=== PATIENT | female | born 1945 | race Caucasian/White ===

== ENCOUNTER 2021-05-31 13:08 | Inpatient (IN) | payer MEDICARE, BC ==
[2021-05-31] MEDS ORDERED: solu-MEDROL 125 MG, Sterile H2O 10 ml 2 ML IV ONE ×2 (13:34)
[2021-05-31 13:53] LABS: Hematocrit 40.7 % (35-47); Hemoglobin 13.4 gm/dl (12.0-16.0); Mean Cell Volume 91.3 fl (78-100); Mean Corpuscular Hgb Concent. 32.9 g/dl (32-36); Mean Platelet Volume 11.1 fl (7.5-11.0); Platelet Count 198 K/mm3 (150-450); Red Blood Count 4.46 M/mm3 (4.1-5.4); Red Cell Distribution Width 14.1 % (11.5-14.0); White Blood Count 4.8 K/mm3 (4.0-10.5)
[2021-05-31] MEDS: Sodium Chloride 0.9% 1000 ML 1,000 ML IV SCH (14:01)
--- NOTE | 2021-05-31 14:01 | XRAY ---
Indication: Short of breath. Suspect Covid 19. Comparison: None Portable chest demonstrates subtle diffuse bilateral hazy interstitial alveolar opacities without consolidation/large effusion. Heart not enlarged. Bony thorax intact with mild osteopenia, degenerative changes, and old left humerus fracture.
[2021-05-31] MEDS ORDERED: solu-MEDROL ONE (14:09)
[2021-05-31 14:29] LABS: INR 1.17 (0.8-3.0); PROTIME 13.8 SECONDS (9.4-12.5)
--- NOTE | 2021-05-31 14:33 | ERPHSYRPT ---
- History of Present Illness Time Seen by Provider: 05/31/21 13:25 Source: patient Exam Limitations: no limitations Patient Subjective Stated Complaint: Near syncope Triage Nursing Assessment: Patient brought down to ED via w/c and transferred self to bed. Patient A+O x 3. Patient's skin flushed, warm and dry. Patient complains of near syncopal episode prior to coming a chest x ray while at [facility] [place] [facility]. Patient complains of cough, SOB, Headache, bodyache, N/V diarrhea and fatige since 05/23/2021. Patient took home COVID test on 05/24/2021 and it was positive. Intial O2 88% on room air. Physician History: Patient is a 75-year-old white female who presents to the ER by wheelchair from the [facility] where she was subject to near syncopal episode while trying to get a chest x-ray. She has been sick for 7 days. She has cough which is basically nonproductive pleuritic chest pain shortness of breath headache loss of taste and smell she is also had nausea vomiting and diarrhea. She did have a home Covid test which was positive and it was noted her O2 sat on room air at the [facility] was 88%. Timing/Duration: day(s), week(s) (1) Cough Quality/Degree: dry cough Possible Cause: occasional episodes Modifying Factors: Improves With: coughing, oxygen Associated Symptoms: fever, chills, chest pain/soreness, cough, headache, lightheadedness, nasal congestion, shortness of breath, wheezing Allergies/Adverse Reactions: codeine Allergy (Verified 05/31/21 13:21) Hx Influenza Vaccination/Date Given: No Hx Pneumococcal Vaccination/Date Given: No Immunizations Up to Date: Yes Travel Risk - International Travel Have you traveled outside of the country in past 3 weeks: No - Coronavirus Screening Are you exhibiting any of the following symptoms?: No Symptoms: Cough: New Onset, Shortness of Breath, Vomiting/Diarrhea, Headaches/Body Aches/Fatigue - Vaccine Status Have you recieved a Covid-19 vaccination: No - Review of Systems Constitutional: Fever, Chills Eyes: No Symptoms Ears, Nose, & Throat: Nose Congestion, Sinus Drainage, Throat Pain, Throat Swelling, Hoarse, Painful Swallowing Respiratory: Cough, Dyspnea, Wheezing Cardiac: Chest Pain, Syncope (Near syncope in [facility]), No Edema Abdominal/Gastrointestinal: Abdominal Pain, Nausea, Vomiting, Diarrhea, Appetite Changes Genitourinary Symptoms: No Dysuria Musculoskeletal: Arthralgias, Myalgias, No Back Pain, No Neck Pain Skin: No Rash Neurological: Headache, No Dizziness, No Focal Weakness, No Sensory Changes Psychological: No Symptoms Endocrine: No Symptoms All Other Systems: Reviewed and Negative - Past Medical History Pertinent Past Medical History: No Neurological History: No Pertinent History ENT History: No Pertinent History Cardiac History: Hypertension Respiratory History: No Pertinent History Endocrine Medical History: No Pertinent History Musculoskeletal History: No Pertinent History GI Medical History: No Pertinent History History: No Pertinent History Psycho-Social History: No Pertinent History Female Reproductive Disorders: No Pertinent History - Past Surgical History Past Surgical History: Yes Neuro Surgical History: No Pertinent History Cardiac: Cardiac Catheterization, Cardiac Stent Respiratory: No Pertinent History Gastrointestinal: Cholecystectomy Genitourinary: No Pertinent History Musculoskeletal: No Pertinent History Female Surgical History: No Pertinent History - Social History Smoking Status: Never smoker Exposure to second hand smoke: No Drug Use: none Patient Lives Alone: No - Female History Hx Now: No - Nursing Vital Signs Nursing Vital Signs: Initial Vital Signs Pulse Rate 76 05/31/21 13:09 Respiratory Rate 28 H 05/31/21 13:09 Blood Pressure 148/72 05/31/21 13:09 O2 Sat by Pulse Oximetry 88 L 05/31/21 13:09 Pain Scale Pain Intensity 0 - Physical Exam General Appearance: moderate distress, alert Eye Exam: PERRL/EOMI, eyes nml inspection Ears, Nose, Throat Exam: TMs normal, pharynx normal, dry mucous membranes Neck Exam: normal inspection, non-tender, supple, full range of motion Respiratory Exam: respiratory distress, diminished breath sounds, crackles/rales, wheezing Cardiovascular Exam: regular rate/rhythm, normal heart sounds Gastrointestinal/Abdomen Exam: tenderness, No guarding, No rebound Back Exam: normal inspection, No CVA tenderness, No vertebral tenderness Extremity Exam: normal inspection, normal range of motion Neurologic Exam: alert, oriented x 3, cooperative, normal mood/affect, sensation nml, No motor deficits Skin Exam: normal color, warm, dry, No rash Lymphatic Exam: No adenopathy SpO2 Interpretation: hypoxic, O2 applied SpO2: 88 O2 Delivery: Nasal Cannula - Course Nursing assessment & vital signs reviewed: Yes EKG Interpreted by Me: RATE (76), Sinus Rhythm, NORMAL AXIS, NORMAL INTERVALS, NORMAL QRS, NORMAL ST-T - Radiology Exams Chest X-ray Interpretation: Other (Chest x-ray shows subtle diffuse bilateral hazy interstitial alveolar patches without consolidation or large effusion heart not enlarged bony thorax intact with mild S osteopenia degenerative changes and old left humerus fracture) Ordered Tests: Active Orders 24 hr Category Date Time Status EKG-ER Only STAT Care 05/31/21 13:34 Active IV Insertion STAT Care 05/31/21 13:34 Active Oxygen-ED Only Nasal Cannula 5 lpm Care 05/31/21 13:34 Active CHEST 1 VIEW (PORTABLE) Stat Exams 05/31/21 13:35 Completed BLOOD CULTURE Stat Lab 05/31/21 14:00 Received CBC W DIFF Stat Lab 05/31/21 13:40 Completed CMP Stat Lab 05/31/21 15:19 Ordered D-DIMER QUANTITATIVE Stat Lab 05/31/21 14:05 Completed Lactic Acid Stat Lab 05/31/21 13:55 Completed MAGNESIUM Stat Lab 05/31/21 13:40 Completed Manual Differential NC Stat Lab 05/31/21 13:40 Completed NT PRO BNP Stat Lab 05/31/21 13:40 Completed PROTIME WITH INR Stat Lab 05/31/21 14:05 Completed TROPONIN Q3H Lab 05/31/21 13:40 Completed TROPONIN Q3H Lab 05/31/21 16:45 Ordered TROPONIN Q3H Lab 05/31/21 19:45 Ordered TROPONIN Q3H Lab 05/31/21 22:45 Ordered TROPONIN Q3H Lab 06/01/21 01:45 Ordered UA W/RFX UR CULTURE Stat Lab 05/31/21 13:35 Ordered Medication Summary Generic Name Dose Route Start Last Admin Trade Name Freq PRN Reason Stop Dose Admin Sodium Chloride 1,000 mls @ 50 mls/hr 05/31/21 13:45 05/31/21 14:01 Sodium Chloride 0.9% 1000 Ml IV 06/30/21 13:44 50 mls/hr .Q20H JEYSON Administration Discontinued Medications Generic Name Dose Route Start Last Admin Trade Name Freq PRN Reason Stop Dose Admin Methylprednisolone Sodium 0 mg 05/31/21 13:34 05/31/21 14:09 Succinate 125 mg/ Sterile IV 05/31/21 13:35 125 mg Water 2 ml STAT ONE Administration Methylprednisolone Sodium Succinate Confirm 05/31/21 14:09 Methylprednis Sod Succ 125 Mg/2 Ml Vial Administered 05/31/21 14:10 Dose 125 mg .ROUTE .STK-MED ONE Lab/Rad Data: Laboratory Result Diagrams 05/31/21 13:40 Laboratory Results 05/31/21 05/31/21 05/31/21 Range/Units 14:05 13:58 13:55 WBC (4.0-10.5) K/mm3 RBC (4.1-5.4) M/mm3 Hgb (12.0-16.0) gm/dl Hct (35-47) % MCV (78-100) fl MCH (26-32) pg MCHC (32-36) g/dl RDW (11.5-14.0) % Plt Count (150-450) K/mm3 MPV (7.5-11.0) fl Segmented Neutrophils (36.0-66.0) % Band Neutrophils (0.0-2.0) % Lymphocytes (Manual) (24-44) % Monocytes (Manual) (0.0-12.0) % Atypical Lymphocytes % Platelet Estimate (NORMAL) RBC Morphology Anisocytosis PT 13.8 H (9.4-12.5) SECONDS INR 1.17 (0.8-3.0) D-Dimer 856 H* (215-500) ng/mL Lactic Acid 1.2 (0.4-2.0) Magnesium (1.6-2.3) mg/dL Troponin I (0.000-0.034) ng/mL NT-Pro-B Natriuret Pep (0-900) pg/mL Influenza Type A Ag NEGATIVE (NEGATIVE) Influenza Type B Ag NEGATIVE (NEGATIVE) RSV (PCR) NEGATIVE (Negative) SARS-CoV-2 (PCR) POSITIVE A (NEGATIVE) 05/31/21 05/31/21 05/31/21 Range/Units 13:40 13:40 13:40 WBC 4.8 (4.0-10.5) K/mm3 RBC 4.46 (4.1-5.4) M/mm3 Hgb 13.4 (12.0-16.0) gm/dl Hct 40.7 (35-47) % MCV 91.3 (78-100) fl MCH 30.0 (26-32) pg MCHC 32.9 (32-36) g/dl RDW 14.1 H (11.5-14.0) % Plt Count 198 (150-450) K/mm3 MPV 11.1 H (7.5-11.0) fl Segmented Neutrophils 42 (36.0-66.0) % Band Neutrophils 1 (0.0-2.0) % Lymphocytes (Manual) 42 (24-44) % Monocytes (Manual) 11 (0.0-12.0) % Atypical Lymphocytes 4 % Platelet Estimate NORMAL (NORMAL) RBC Morphology ABNORMAL Anisocytosis 1+ PT (9.4-12.5) SECONDS INR (0.8-3.0) D-Dimer (215-500) ng/mL Lactic Acid (0.4-2.0) Magnesium 2.0 (1.6-2.3) mg/dL Troponin I 0.049 H* (0.000-0.034) ng/mL NT-Pro-B Natriuret Pep 678 (0-900) pg/mL Influenza Type A Ag (NEGATIVE) Influenza Type B Ag (NEGATIVE) RSV (PCR) (Negative) SARS-CoV-2 (PCR) (NEGATIVE) - Progress Progress: unchanged Air Movement: fair Blood Culture(s) Obtained: Yes Antibiotics given: No Discussed with Dr.: Other (Dr Schultz) Will see patient in: hospital (full admit) - Departure Departure Disposition: In-patient Admission Clinical Impression: COVID-19 Condition: Fair Critical Care Time: No Referrals: JAEL LEHMAN [Primary Care Provider] - Follow up/PCP as directed
[2021-05-31 14:54] LABS: INFLUENZA A NEGATIVE (NEGATIVE); INFLUENZA B NEGATIVE (NEGATIVE); RESPIRATORY SYNCTIAL VIRUS NEGATIVE (Negative)
[2021-05-31 15:13] LABS: SARS-CoV-2 Xpert Express POSITIVE (NEGATIVE)
[2021-05-31 15:34] LABS: ANISOCYTOSIS 1+; ATYPICAL LYMPHS 4 %; BAND 1 % (0.0-2.0); Lymphocytes 42 % (24-44); Monocyte 11 % (0.0-12.0); Neutrophils 42 % (36.0-66.0); Platelet Estimate NORMAL (NORMAL); Total Cells Counted 100
[2021-05-31 15:41] LABS: ALBUMIN 3.8 g/dL (3.5-5.0); ALKALINE PHOSPHATASE 75 U/L (38-126); ANION GAP 15.3 MEQ/L (5-15); BLOOD UREA NITROGEN 15 mg/dL (7-17); CHLORIDE 101 mmol/L (98-107); Calcium 8.1 mg/dL (8.4-10.2); Carbon Dioxide 24 mmol/L (22-30); Creatinine 1 0.86 mg/dL (0.52-1.04); EST GLOMERULAR FILTRATION RATE > 60.0 ML/MIN; Glucose 111 mg/dL (74-106); Potassium 3.7 mmol/L (3.5-5.1); SGOT/AST 41 U/L (14-36); SGPT/ALT 23 U/L (0-35); SODIUM 137 mmol/L (137-145); Total Protein 6.5 g/dL (6.3-8.2)
[2021-05-31] MEDS ORDERED: Zithromax 500 MG/ 250 ML NaCl Premix 500 MG/250 ML IVPB IV SCH (17:00)
[2021-05-31 17:56] LABS: Appearance SLIGHTLY CLOUDY (CLEAR); Bilirubin NEGATIVE (NEGATIVE); Blood SMALL Ery/ul (0-5); Epithelial Cells RARE /HPF (FEW); Glucose NEGATIVE (NEGATIVE); Ketones SMALL (NEGATIVE); Leukocyte Esterase TRACE (NEGATIVE); Mucus SLIGHT /HPF (NEGATIVE); Nitrite NEGATIVE (NEGATIVE); Protein,Urine Dip 100 (Negative); Specific Gravity 1.016 (1.005-1.025); Urobilinogen NEGATIVE mg/dL (0-1)
[2021-05-31] MEDS: ENOXAPARIN SODIUM SQ SCH (18:50)
[2021-05-31] MEDS ORDERED: Zofran 4 MG/2 ML VIAL IV PRN (20:51)
[2021-05-31] MEDS ORDERED: REMDESIVIR 200 MG in Sodium Chloride 0.9% 250 ML 250 ML IV ONE (20:52)
[2021-05-31] MEDS ORDERED: Sodium Chloride 0.9% 250 ML 250 ML IV ONE (20:52)
[2021-05-31] MEDS ORDERED: REMDESIVIR IV ONE (20:52)
[2021-05-31] MEDS ORDERED: Ativan 2 MG/1 ML VIAL IV PRN (20:56)
[2021-05-31] MEDS: OLUMIANT PO SCH (21:22)
[2021-05-31] MEDS: Pepcid 20 MG VIAL IV SCH (21:23)
[2021-05-31] MEDS ORDERED: NORVASC 5 MG PO ONE (22:00)
[2021-05-31] MEDS ORDERED: HYDROCODONE-CHLORPHEN ER SUSP PO PRN (22:00)
[2021-06-01] MEDS: Sodium Chloride 0.9% 1000 ML 1,000 ML IV SCH (01:44)
[2021-06-01 02:34] LABS: Hematocrit 37.3 % (35-47); Hemoglobin 12.3 gm/dl (12.0-16.0); Mean Cell Volume 90.8 fl (78-100); Mean Corpuscular Hemoglobin 29.9 pg (26-32); Mean Platelet Volume 10.7 fl (7.5-11.0); Platelet Count 188 K/mm3 (150-450); Red Blood Count 4.11 M/mm3 (4.1-5.4); Red Cell Distribution Width 13.9 % (11.5-14.0)
[2021-06-01 02:59] LABS: INR 1.14 (0.8-3.0); PROTIME 13.5 SECONDS (9.4-12.5)
[2021-06-01 03:22] LABS: ALBUMIN 3.4 g/dL (3.5-5.0); ALKALINE PHOSPHATASE 70 U/L (38-126); ANION GAP 11.5 MEQ/L (5-15); BLOOD UREA NITROGEN 14 mg/dL (7-17); CHLORIDE 103 mmol/L (98-107); Calcium 7.7 mg/dL (8.4-10.2); Carbon Dioxide 25 mmol/L (22-30); Creatinine 1 0.72 mg/dL (0.52-1.04); EST GLOMERULAR FILTRATION RATE > 60.0 ML/MIN; Glucose 174 mg/dL (74-106); NT PRO BNP 505 pg/mL (0-900); Potassium 3.7 mmol/L (3.5-5.1); SGOT/AST 37 U/L (14-36); SGPT/ALT 22 U/L (0-35); SODIUM 136 mmol/L (137-145); Total Protein 5.9 g/dL (6.3-8.2)
[2021-06-01 03:44] LABS: White Blood Count 1.8 K/mm3 (4.0-10.5)
[2021-06-01 04:51] LABS: ANISOCYTOSIS 1+; Lymphocytes 61 % (24-44); Monocyte 1 % (0.0-12.0); Neutrophils 38 % (36.0-66.0); Platelet Estimate NORMAL (NORMAL); Total Cells Counted 100
[2021-06-01] MEDS ORDERED: Ativan 1 MG PO PRN (07:12)
[2021-06-01] MEDS ORDERED: Sodium Chloride 0.9% 1000 ML 1,000 ML IV SCH (07:15)
[2021-06-01] MEDS ORDERED: Nitrostat 0.4 MG Tablet SL PRN (07:28)
--- NOTE | 2021-06-01 07:56 | HP ---
CHIEF COMPLAINT: Near syncope, weakness, diarrhea and cough. HISTORY OF PRESENT ILLNESS: The patient was in the outpatient clinic sent for a chest x-ray when she was being transferred and said she had to lay down that she was passing out. Chest x-ray showed bilateral early COVID. She was short of breath, coughing for the last week, headache, no appetite, body ache, nausea, vomiting and diarrhea. She has had diarrhea for ten years although it is much worse. She is not taking Metformin. Her gallbladder was removed and that is probably the cause of her diarrhea, I believe, and she is on medicine for that. Initially, she was 88% on room air in the emergency room however started dropping soon after that. She is a nonsmoker. Interesting she has lost her sense of taste and smell. Home COVID test was positive three days ago. She does not know that she has had any high fever. She is cold most of the time. TRAVEL RISK: No international travel. CORONAVIRUS SCREENING: Home COVID test was positive three days ago. Vaccines: None of any type. MEDICATIONS: Amlodipine, Prevalite, nitroglycerin PRN, Bentyl, omeprazole, carvedilol, Imdur, Plavix, aspirin. ALLERGIES: CODEINE. PAST MEDICAL HISTORY: Hypertension. Hyperlipidemia. PAST SURGICAL HISTORY: Stenting. Cholecystectomy. REVIEW OF SYSTEMS: CONSTITUTIONAL: Chills. HEENT: Decreased taste. Decreased smell. Runny nose, sore throat, hoarse. CARDIAC: The patient has had two stents placed in at one time. She has no chest pain and no angina since then. No heart failure. ABDOMEN: She has had pain. She had diarrhea since her gallbladder was taken out, worse since she had COVID, some vomiting, no appetite. : No problems urinating. MUSCULOSKELETAL: Weak, ache all over. Occasionally she has jerky restless legs at night. SOCIAL HISTORY: Nonsmoker. Lives with her in [place], retired, adult daughter and son. PHYSICAL EXAMINATION: The patient is laying down. She is alert, orientated, very pleasant and in no distress. VITAL SIGNS: Temperature 98F, pulse 76, respirations 28. O2 saturation 88% on room air. HEENT: Pupils equal and reactive to light. NECK: Supple without adenopathy. CHEST: Few crackles at the bases. CVS: Regular rate. No murmurs or gallops. ABDOMEN: Slightly tender in the epigastric and midline area. EXTREMITIES: Good pulses. No edema. No cyanosis. LAB DATA AND TESTS: EKG appears to be normal. She has minimal elevation of troponins. Lab work: D-dimer is 857. Pro-time 13.8. INR 1.17. White count 4.8, hemoglobin 13.4, hematocrit 40.7. Troponins minimally elevated 0.049. BNP 678 which is normal. Blood cultures were obtained. Antibiotics not given. IMPRESSION: She was admitted to the COVID Unit for: 1) Treatment of active COVID. 2) Dehydration. 3) Gastroenteritis. 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 5) Coronary artery disease, stable. PROGNOSIS: Good.
[2021-06-01] MEDS: BENTYL 20 MG PO SCH ×2 (08:57→17:13)
[2021-06-01] MEDS: NORVASC 5 MG PO SCH ×2 (09:04→18:39)
[2021-06-01] MEDS: OLUMIANT PO SCH (09:04)
[2021-06-01] MEDS: Coreg 3.125 MG PO SCH (09:04)
[2021-06-01] MEDS: PLAVIX 75 MG Tablet PO SCH (09:04)
[2021-06-01] MEDS: Imdur 30 MG PO SCH (09:04)
[2021-06-01] MEDS: ENOXAPARIN SODIUM SQ SCH (09:05)
[2021-06-01] MEDS: QUESTRAN Light 4 GM Packet PO SCH ×3 (09:05→17:14)
[2021-06-01] MEDS: Protonix 40MG Tablet PO SCH (09:05)
[2021-06-01] MEDS: Pepcid 20 MG VIAL IV SCH ×2 (09:05→21:07)
[2021-06-01] MEDS ORDERED: NON-FORMULARY ITEM (Omeprazole [Omeprazole] 40 MG Capsule.Dr) PO SCH (10:00)
--- NOTE | 2021-06-01 10:03 | XRAY ---
Indication: Suspect Covid 19. Comparison: One day earlier. Portable chest unchanged again demonstrating subtle diffuse bilateral hazy interstitial alveolar opacities without consolidation/large effusion. Heart not enlarged again with stent graft emanating from aortic arch. No new cardiopulmonary abnormalities.
[2021-06-01] MEDS: TYLENOL EXTRA STRENGTH 500 MG PO PRN ×2 (10:59→21:19)
[2021-06-01] MEDS: Prozac 20 MG PO SCH ×2 (11:00→11:06)
[2021-06-01] MEDS ORDERED: BENADRYL 25 MG CAPSULE PO PRN (17:32)
[2021-06-01] MEDS ORDERED: REMDESIVIR 100 MG in Sodium Chloride 0.9% 100 ML BAG 100 ML IV SCH (22:00)
[2021-06-02 05:24] LABS: Hematocrit 35.8 % (35-47); Hemoglobin 11.6 gm/dl (12.0-16.0); Mean Cell Volume 91.8 fl (78-100); Mean Corpuscular Hemoglobin 29.7 pg (26-32); Mean Corpuscular Hgb Concent. 32.4 g/dl (32-36); Mean Platelet Volume 10.5 fl (7.5-11.0); Platelet Count 236 K/mm3 (150-450); Red Cell Distribution Width 14.2 % (11.5-14.0); White Blood Count 6.8 K/mm3 (4.0-10.5)
[2021-06-02 05:48] LABS: ALBUMIN 3.3 g/dL (3.5-5.0); ALKALINE PHOSPHATASE 57 U/L (38-126); ANION GAP 9.3 MEQ/L (5-15); BLOOD UREA NITROGEN 20 mg/dL (7-17); CHLORIDE 106 mmol/L (98-107); Calcium 7.9 mg/dL (8.4-10.2); Carbon Dioxide 27 mmol/L (22-30); Creatinine 1 0.68 mg/dL (0.52-1.04); EST GLOMERULAR FILTRATION RATE > 60.0 ML/MIN; Glucose 117 mg/dL (74-106); Potassium 3.3 mmol/L (3.5-5.1); SGOT/AST 35 U/L (14-36); SGPT/ALT 21 U/L (0-35); SODIUM 139 mmol/L (137-145); Total Protein 6.1 g/dL (6.3-8.2)
[2021-06-02] MEDS: BENTYL 20 MG PO SCH (07:23)
--- NOTE | 2021-06-02 08:35 | XRAY ---
Indication: Follow-up Covid 19. Comparison: One day earlier. Portable chest continues to remain unchanged again demonstrating subtle diffuse bilateral hazy interstitial lobular opacities. Heart not enlarged again with stent graft emanating from aortic arch. No new cardiopulmonary abnormalities.
[2021-06-02] MEDS: OLUMIANT PO SCH (09:03)
[2021-06-02] MEDS: NORVASC 5 MG PO SCH (09:04)
[2021-06-02] MEDS: Pepcid 20 MG VIAL IV SCH (09:04)
[2021-06-02] MEDS: Prozac 20 MG PO SCH (09:04)
[2021-06-02] MEDS: PLAVIX 75 MG Tablet PO SCH (09:04)
[2021-06-02] MEDS: Protonix 40MG Tablet PO SCH (09:04)
[2021-06-02] MEDS: Coreg 3.125 MG PO SCH (09:04)
[2021-06-02] MEDS: ENOXAPARIN SODIUM SQ SCH (09:04)
[2021-06-02] MEDS: Imdur 30 MG PO SCH (09:04)
[2021-06-02] MEDS: QUESTRAN Light 4 GM Packet PO SCH (09:05)
[2021-06-02 10:48] VITALS: BP 151/67; PULSE 109; O2SAT 92
--- NOTE | 2021-06-02 10:52 | DS ---
ADMISSION DIAGNOSIS: COVID pneumonia. DISCHARGE DIAGNOSIS: COVID PNEUMONIA. HISTORY: The patient became very nauseated, shortness of breath, had trouble walking. She came in and required high flow at 8 liters to get her O2 up. For a little while she did not feel bad. Her appetite was good. White count was 8.5. D-dimer was 1300. Sodium 139. Other health problems of bilateral COVID, hypertension, hyperlipidemia, hypothyroidism, diabetes mellitus. HOSPITAL COURSE: The patient was gradually weaned off the oxygen. She was given Remdesivir, Decadron. She was anticoagulated partially and also given antibodies. She on a daily basis improved consistently and rapidly. Blood sugar was well controlled. 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 [place] [address] and was placed on Lovenox and Eliquis. She was started on Prozac because of recent studies showing that it may help improvement. Chest x-ray on 05/27/2021 showed typical diffuse, hazy ground glass findings of COVID on the right. The highest D-dimer was 08704. The highest blood sugar was about 192. White count did go up to 12.3. Diastolic 2/6 systolic murmur I could hear on 05/31/2021 and not so much on 06/01/2021. She is much improved and will be discharged home on her home medications. Follow up with her oncologist and other doctors. She is to isolate for another ten days. PROGNOSIS: Good.
== END 2021-06-02 12:00 | disposition home or self-care (01) | DRG 177 ==
LOC: ED 13:08 → MED SURG 16:10
PROVIDERS: ADMIT Family Medicine; ATTEND Family Medicine
DX: U07.1 COVID-19 (principal); J12.82 Pneumonia due to coronavirus disease 2019; C34.90 Malignant neoplasm of unspecified part of unspecified bronchus or lung; E86.0 Dehydration; K52.9 Noninfective gastroenteritis and colitis, unspecified; R55 Syncope and collapse; I10 Essential (primary) hypertension; E78.5 Hyperlipidemia, unspecified; E11.9 Type 2 diabetes mellitus without complications; E03.9 Hypothyroidism, unspecified; I25.10 Atherosclerotic heart disease of native coronary artery without angina pectoris; Z79.01 Long term (current) use of anticoagulants; Z20.828 Contact with and (suspected) exposure to other viral communicable diseases
CPT/HCPCS: 0241U; 36000; 36415; 71045; 80053; 81001; 82947; 83605; 83735; 83880; 84484; 85025; 85027; 85060; 85379; 85610; 86140; 87040; 87086; 93005; 94762; 96374; 99285; J1650; J2060; J2930; A9270-GY

== ENCOUNTER 2023-07-24 10:08 | Observation (INO) | payer MEDICARE, BC ==
--- NOTE | 2023-07-24 10:26 | ERPHSYRPT ---
- History of Present Illness Time Seen by Provider: 07/24/23 10:25 Source: patient Exam Limitations: no limitations Patient Subjective Stated Complaint: Pt states "I have been fighting something for quite awhile now and now I am having a really hard time breathing and I am still coughing." Triage Nursing Assessment: Pt presented alert and oriented X 3, skin pwd. PT ambulates with an upright steady gait, able to speak in clear full sentences. PT slightly tachypniec. Physician History: 77-year-old female presents to emergency department for evaluation of progressive shortness of breath and coughing. Patient states her symptoms started approximately 2 days ago. Symptoms are worse with exertion improved with rest. No trauma no fever. No nausea vomiting or diaphoresis. Patient denies chest pain. Symptoms are moderate in intensity. Patient denies a history of the same. She voices no other complaints or concerns at this time. Portions of this note were created with voice recognition technology. There may be grammatical, spelling, punctuation or sound alike errors Timing/Duration: week(s) (2 weeks) Severity: moderate Modifying Factors: Improves With: nothing Associated Symptoms: denies symptoms Allergies/Adverse Reactions: codeine Allergy (Severe, Verified 05/31/21 16:41) Nausea and Vomiting Home Medications: Amlodipine Besylate 5 mg PO BID 05/31/21 [History] Aspirin EC 81 mg [Ecotrin 81 mg] 81 mg PO DAILY 05/31/21 [History] Carvedilol 3.125 mg [Coreg 3.125 MG] 0.5 tab PO DAILY 05/31/21 [History] Clopidogrel Bisulfate [PLAVIX 75 MG Tablet] 75 mg PO DAILY 05/31/21 [History] Isosorbide Mononitrate 30 mg [Imdur 30 MG] 30 mg PO DAILY 05/31/21 [History] Nitroglycerin 0.4 mg Tablet [Nitrostat 0.4 MG Tablet] 0.4 mg SL UD PRN 05/31/21 [History] Omeprazole 40 mg PO DAILY 05/31/21 [History] Cefdinir 300 mg PO BID 07/24/23 [History] Hx Tetanus, Diphtheria Vaccination/Date Given: No Hx Influenza Vaccination/Date Given: No Hx Pneumococcal Vaccination/Date Given: No Immunizations Up to Date: No Travel Risk - International Travel Have you traveled outside of the country in past 3 weeks: No - Coronavirus Screening Are you exhibiting any of the following symptoms?: Yes Symptoms: Cough: New Onset, Shortness of Breath, Vomiting/Diarrhea - Vaccine Status Have you recieved a Covid-19 vaccination: No - Review of Systems Constitutional: No Symptoms, No Fever, No Chills Eyes: No Symptoms Ears, Nose, & Throat: No Symptoms Respiratory: No Symptoms, No Cough, No Dyspnea Cardiac: No Symptoms, No Chest Pain, No Edema, No Syncope Abdominal/Gastrointestinal: No Symptoms, No Abdominal Pain, No Nausea, No Vomiting, No Diarrhea Genitourinary Symptoms: No Symptoms, No Dysuria Musculoskeletal: No Symptoms, No Back Pain, No Neck Pain Skin: No Symptoms, No Rash Neurological: No Symptoms, No Dizziness, No Focal Weakness, No Sensory Changes Psychological: No Symptoms Endocrine: No Symptoms Hematologic/Lymphatic: No Symptoms Immunological/Allergic: No Symptoms All Other Systems: Reviewed and Negative - Past Medical History Pertinent Past Medical History: Yes Neurological History: No Pertinent History ENT History: No Pertinent History Cardiac History: Hypertension Respiratory History: Pneumonia Endocrine Medical History: No Pertinent History Musculoskeletal History: Arthritis GI Medical History: GERD History: No Pertinent History Psycho-Social History: No Pertinent History Female Reproductive Disorders: No Pertinent History Other Medical History: "Blood clots near my heart" - Past Surgical History Past Surgical History: Yes Neuro Surgical History: No Pertinent History Cardiac: Cardiac Catheterization, Cardiac Stent Respiratory: No Pertinent History Gastrointestinal: Cholecystectomy Genitourinary: No Pertinent History Musculoskeletal: No Pertinent History Female Surgical History: No Pertinent History - Social History Smoking Status: Former smoker Exposure to second hand smoke: No Drug Use: none Patient Lives Alone: No - Nursing Vital Signs Nursing Vital Signs: Initial Vital Signs Temperature 97.6 F 07/24/23 10:18 Pulse Rate 79 07/24/23 10:18 Respiratory Rate 22 07/24/23 10:18 Blood Pressure 150/65 07/24/23 10:18 O2 Sat by Pulse Oximetry 91 L 07/24/23 10:18 Pain Scale Pain Intensity 0 - Physical Exam General Appearance: no apparent distress, alert Eye Exam: PERRL/EOMI, eyes nml inspection Ears, Nose, Throat Exam: normal ENT inspection, TMs normal, pharynx normal, moist mucous membranes Neck Exam: normal inspection, non-tender, supple, full range of motion Respiratory Exam: normal breath sounds, diminished breath sounds, crackles/rales, wheezing, No respiratory distress Cardiovascular Exam: regular rate/rhythm, normal heart sounds, normal peripheral pulses Gastrointestinal/Abdomen Exam: soft, normal bowel sounds, No tenderness, No mass Back Exam: normal inspection, normal range of motion, No CVA tenderness, No vertebral tenderness Extremity Exam: normal inspection, normal range of motion, pelvis stable Neurologic Exam: alert, oriented x 3, cooperative, normal mood/affect, sensation nml, No motor deficits Skin Exam: normal color, warm, dry, No rash Lymphatic Exam: No adenopathy SpO2 Interpretation: normal SpO2: 95 O2 Delivery: Room Air - Course Nursing assessment & vital signs reviewed: Yes EKG Interpreted by Me: RATE (73), Sinus Rhythm, NORMAL AXIS, NORMAL INTERVALS - CT Exams Chest CT Interpretation: Tele-radiologist Report (No PE. No acute findings.) Ordered Tests: Active Orders 24 hr Category Date Time Status Central Office Equipment Engineer STAT Care 07/24/23 10:34 Active EKG-ER Only STAT Care 07/24/23 10:33 Active IV Insertion STAT Care 07/24/23 10:33 Active Pulse Oximetry (ED) STAT Care 07/24/23 10:33 Active Telemetry q4h Care 07/24/23 11:36 Active CHEST WITH CONTRAST [CT] Stat Exams 07/24/23 11:35 Completed BLOOD CULTURE Stat Lab 07/24/23 10:53 Received CBC Q48H Lab 07/25/23 06:00 Ordered CBC Q48H Lab 07/27/23 06:00 Ordered CBC Q48H Lab 07/29/23 06:00 Ordered CBC Q48H Lab 07/31/23 06:00 Ordered CBC Q48H Lab 08/02/23 06:00 Ordered CBC Q48H Lab 08/04/23 06:00 Ordered CBC Q48H Lab 08/06/23 06:00 Ordered CBC Stat Lab 07/24/23 16:00 Completed CBC W DIFF Stat Lab 07/24/23 10:32 Completed CMP Stat Lab 07/24/23 10:32 Completed CULTURE,URINE Stat Lab 07/24/23 Received D-DIMER QUANTITATIVE Stat Lab 07/24/23 10:32 Completed NT PRO BNPII Stat Lab 07/24/23 10:32 Completed PROTIME WITH INR Stat Lab 07/24/23 16:00 Completed PTT Q4H Lab 07/24/23 18:48 Completed PTT Q4H Lab 07/24/23 23:01 Received PTT Q4H Lab 07/25/23 03:45 Ordered PTT Q4H Lab 07/25/23 07:45 Ordered PTT Q4H Lab 07/25/23 11:45 Ordered PTT Q4H Lab 07/25/23 15:45 Ordered PTT Q4H Lab 07/25/23 19:45 Ordered PTT Q4H Lab 07/25/23 23:45 Ordered PTT Q4H Lab 07/26/23 03:45 Ordered PTT Q4H Lab 07/26/23 07:45 Ordered PTT Q4H Lab 07/26/23 11:45 Ordered PTT Stat Lab 07/24/23 16:00 Completed TROPONIN Q4H Lab 07/24/23 10:32 Completed TROPONIN Q4H Lab 07/24/23 14:26 Completed TROPONIN Q4H Lab 07/24/23 18:48 Completed TROPONIN Q4H Lab 07/24/23 23:01 Received UA W/RFX UR CULTURE Stat Lab 07/24/23 Completed Respiratory Therapy Assessment DAILY RT 07/24/23 10:57 Active Medication Summary Generic Name Dose Route Start Last Admin Trade Name Freq PRN Reason Stop Dose Admin Magnesium Sulfate/Dextrose 100 mls @ 100 mls/hr 07/24/23 11:45 07/24/23 12:25 Magnesium 1 Gm / 100 Ml D5w IV 07/24/23 13:44 100 mls/hr Q1H JEYSON Administration Potassium Chloride 20 meq in 100 mls @ 50 mls/hr 07/24/23 11:45 07/24/23 16:01 Potassium Chloride 20 Meq In Water 100ml IV 07/24/23 15:44 50 mls/hr Q2H JEYSON Administration Sodium Chloride 500 mls @ 50 mls/hr 07/24/23 13:30 07/24/23 13:28 Sodium Chloride 0.9% 500 Ml IV 08/23/23 13:29 50 mls/hr .Q10H JEYSON Administration Heparin Sodium/Dextrose 25,000 units in 250 mls @ 9.525 mls/hr 07/24/23 16:00 07/24/23 16:17 Heparin 25,000 Units/D5w: Use Order Set Lorena IV 08/23/23 15:59 12 units/kg/hr .Q24H JEYSON 9.525 mls/hr Administration Protocol 12 UNITS/KG/HR Discontinued Medications Generic Name Dose Route Start Last Admin Trade Name Divya PRN Reason Stop Dose Admin Albuterol/Ipratropium 3 ml 07/24/23 10:34 07/24/23 10:42 Ipratropium/Albuterol Sulfate 3 Ml Ampul.Neb IH 07/24/23 10:35 3 ml STAT ONE Administration Albuterol/Ipratropium Confirm 07/24/23 10:40 Ipratropium/Albuterol Sulfate 3 Ml Ampul.Neb Administered 07/24/23 10:41 Dose 3 ml IH .STK-MED ONE Aspirin 324 mg 07/24/23 15:34 07/24/23 16:16 Aspirin 81 Mg Tab.Chew PO 07/24/23 15:35 324 mg STAT ONE Administration Aspirin Confirm 07/24/23 16:13 Aspirin 81 Mg Tab.Chew Administered 07/24/23 16:14 Dose 324 mg .ROUTE .STK-MED ONE Methylprednisolone Sodium 0 mg 07/24/23 20:32 07/24/23 20:39 Succinate 125 mg/ Sterile IV 07/24/23 20:33 125 mg Water 2 ml STAT ONE Administration Heparin Sodium (Beef Lung) 4,800 unit 07/24/23 15:33 07/24/23 16:17 Heparin 5000 Units/0.5 Ml 5,000 Unit/0.5 Ml Syr 60 unit/kg (4800 unit) 07/24/23 15:34 4,800 unit IV Administration STAT STA Heparin Sodium (Beef Lung) Confirm 07/24/23 16:13 Heparin 5000 Units/0.5 Ml 5,000 Unit/0.5 Ml Syr Administered 07/24/23 16:14 Dose 5,000 unit .ROUTE .STK-MED ONE Ceftriaxone Sodium/Dextrose 2 g in 50 mls @ 100 mls/hr 07/24/23 11:36 07/24/23 13:12 Rocephin 2 Gm-D5w 50ml Bag IV 07/24/23 12:05 Infused STAT STA Infusion Azithromycin 500 mg in 250 mls @ 250 mls/hr 07/24/23 11:36 07/24/23 14:55 Zithromax 500 Mg/ 250 Ml Nacl Premix IV 07/24/23 12:35 Infused STAT STA Infusion Ceftriaxone Sodium/Dextrose Confirm 07/24/23 12:37 Rocephin 2 Gm-D5w 50ml Bag Administered 07/24/23 12:38 Dose 2 g in 50 mls @ ud IV .STK-MED ONE Sodium Chloride Confirm 07/24/23 13:21 Sodium Chloride 0.9% 500 Ml Administered 07/24/23 13:22 Dose 500 mls @ ud IV .STK-MED ONE Azithromycin Confirm 07/24/23 13:42 Zithromax 500 Mg/ 250 Ml Nacl Premix Administered 07/24/23 13:43 Dose 500 mg in 250 mls @ ud IV .STK-MED ONE Methylprednisolone Sodium Succinate Confirm 07/24/23 20:38 Methylprednis Sod Succ 125 Mg/2 Ml Vial Administered 07/24/23 20:39 Dose 125 mg .ROUTE .STK-MED ONE Sterile Water Confirm 07/24/23 20:38 Water For Injection,Sterile 10 Ml Vial Administered 07/24/23 20:39 Dose 10 ml IJ .STK-MED ONE Lab/Rad Data: Laboratory Result Diagrams 07/24/23 16:00 07/24/23 10:32 Laboratory Results 07/24/23 07/24/23 07/24/23 Range/Units Unknown 18:48 18:48 WBC (4.0-10.5) x10^3/uL RBC (4.1-5.4) x10^6/uL Hgb (12.0-16.0) g/dL Hct (35-47) % MCV (78-100) fL MCH (26-32) pg MCHC (32-36) g/dL RDW (11.5-14.0) % Plt Count (150-450) x10^3/uL MPV (7.5-11.0) fL Gran % (36.0-66.0) % Immature Gran % (Auto) (0.00-0.4) % Nucleat RBC Rel Count (0.00-0.1) % Eos # (Auto) (0-0.5) x10^3/uL Immature Gran # (Auto) (0.00-0.03) x10^3u/L Absolute Lymphs (auto) (1.0-4.6) x10^3/uL Absolute Monos (auto) (0.0-1.3) x10^3/uL Absolute Nucleated RBC (0.00-0.01) x10^3u/L Lymphocytes % (24.0-44.0) % Monocytes % (0.0-12.0) % Eosinophils % (0.00-5.0) % Basophils % (0.0-0.4) % Absolute Granulocytes (1.4-6.9) x10^3/uL Basophils # (0-0.4) x10^3/uL PT (9.4-12.5) SECONDS INR (0.8-3.0) APTT 51.1 H (25.1-36.5) SECONDS D-Dimer (0.0-0.50) mg/L Sodium (137-145) mmol/L Potassium (3.5-5.1) mmol/L Chloride (98-107) mmol/L Carbon Dioxide (22-30) mmol/L Anion Gap (5-15) MEQ/L BUN (7-17) mg/dL Creatinine (0.52-1.04) mg/dL Estimated GFR ML/MIN Glucose (74-106) mg/dL Calcium (8.4-10.2) mg/dL Total Bilirubin (0.2-1.3) mg/dL AST (14-36) U/L ALT (0-35) U/L Alkaline Phosphatase (38-126) U/L Troponin I 0.107 H* (0.000-0.034) ng/mL NT-Pro-B Natriuret Pep (<300) pg/mL Serum Total Protein (6.3-8.2) g/dL Albumin (3.5-5.0) g/dL Urine Color Yellow (Yellow) Urine Appearance Clear (Clear) Urine pH 6.5 (4.6-8.0) Ur Specific [place] 1.010 (1.005-1.030) Urine Protein Trace A (Negative) Urine Glucose (UA) Negative (Negative) mg/dL Urine Ketones Negative (Negative) Urine Blood Negative (Negative) Urine Nitrite Negative (Negative) Urine Bilirubin Negative (Negative) Urine Urobilinogen 1.0 A (0.2) mg/dL Ur Leukocyte Esterase Trace A (Negative) U Hyaline Cast (Auto) NONE SEEN (0-2) /LPF Urine Microscopic RBC 0-2 (0-5) /HPF Urine Microscopic WBC 0-2 (0-5) /HPF Ur Epithelial Cells None Seen (None Seen) /HPF Urine Bacteria None Seen (None Seen) /HPF Urine Culture Reflexed YES (NO) Influenza Type A Ag (NEGATIVE) Influenza Type B Ag (NEGATIVE) RSV (PCR) (NEGATIVE) SARS-CoV-2 (PCR) (NEGATIVE) 07/24/23 07/24/23 07/24/23 Range/Units 16:00 16:00 14:26 WBC 5.5 (4.0-10.5) x10^3/uL RBC 3.55 L (4.1-5.4) x10^6/uL Hgb 10.8 L (12.0-16.0) g/dL Hct 32.5 L (35-47) % MCV 91.5 (78-100) fL MCH 30.4 (26-32) pg MCHC 33.2 (32-36) g/dL RDW 13.4 (11.5-14.0) % Plt Count 211 (150-450) x10^3/uL MPV 9.5 (7.5-11.0) fL Gran % (36.0-66.0) % Immature Gran % (Auto) (0.00-0.4) % Nucleat RBC Rel Count (0.00-0.1) % Eos # (Auto) (0-0.5) x10^3/uL Immature Gran # (Auto) (0.00-0.03) x10^3u/L Absolute Lymphs (auto) (1.0-4.6) x10^3/uL Absolute Monos (auto) (0.0-1.3) x10^3/uL Absolute Nucleated RBC (0.00-0.01) x10^3u/L Lymphocytes % (24.0-44.0) % Monocytes % (0.0-12.0) % Eosinophils % (0.00-5.0) % Basophils % (0.0-0.4) % Absolute Granulocytes (1.4-6.9) x10^3/uL Basophils # (0-0.4) x10^3/uL PT 11.4 (9.4-12.5) SECONDS INR 1.05 (0.8-3.0) APTT 30.9 (25.1-36.5) SECONDS D-Dimer (0.0-0.50) mg/L Sodium (137-145) mmol/L Potassium (3.5-5.1) mmol/L Chloride (98-107) mmol/L Carbon Dioxide (22-30) mmol/L Anion Gap (5-15) MEQ/L BUN (7-17) mg/dL Creatinine (0.52-1.04) mg/dL Estimated GFR ML/MIN Glucose (74-106) mg/dL Calcium (8.4-10.2) mg/dL Total Bilirubin (0.2-1.3) mg/dL AST (14-36) U/L ALT (0-35) U/L Alkaline Phosphatase (38-126) U/L Troponin I 0.116 H* (0.000-0.034) ng/mL NT-Pro-B Natriuret Pep (<300) pg/mL Serum Total Protein (6.3-8.2) g/dL Albumin (3.5-5.0) g/dL Urine Color (Yellow) Urine Appearance (Clear) Urine pH (4.6-8.0) Ur Specific [place] (1.005-1.030) Urine Protein (Negative) Urine Glucose (UA) (Negative) mg/dL Urine Ketones (Negative) Urine Blood (Negative) Urine Nitrite (Negative) Urine Bilirubin (Negative) Urine Urobilinogen (0.2) mg/dL Ur Leukocyte Esterase (Negative) U Hyaline Cast (Auto) (0-2) /LPF Urine Microscopic RBC (0-5) /HPF Urine Microscopic WBC (0-5) /HPF Ur Epithelial Cells (None Seen) /HPF Urine Bacteria (None Seen) /HPF Urine Culture Reflexed (NO) Influenza Type A Ag (NEGATIVE) Influenza Type B Ag (NEGATIVE) RSV (PCR) (NEGATIVE) SARS-CoV-2 (PCR) (NEGATIVE) 07/24/23 07/24/23 07/24/23 Range/Units 10:47 10:32 10:32 WBC (4.0-10.5) x10^3/uL RBC (4.1-5.4) x10^6/uL Hgb (12.0-16.0) g/dL Hct (35-47) % MCV (78-100) fL MCH (26-32) pg MCHC (32-36) g/dL RDW (11.5-14.0) % Plt Count (150-450) x10^3/uL MPV (7.5-11.0) fL Gran % (36.0-66.0) % Immature Gran % (Auto) (0.00-0.4) % Nucleat RBC Rel Count (0.00-0.1) % Eos # (Auto) (0-0.5) x10^3/uL Immature Gran # (Auto) (0.00-0.03) x10^3u/L Absolute Lymphs (auto) (1.0-4.6) x10^3/uL Absolute Monos (auto) (0.0-1.3) x10^3/uL Absolute Nucleated RBC (0.00-0.01) x10^3u/L Lymphocytes % (24.0-44.0) % Monocytes % (0.0-12.0) % Eosinophils % (0.00-5.0) % Basophils % (0.0-0.4) % Absolute Granulocytes (1.4-6.9) x10^3/uL Basophils # (0-0.4) x10^3/uL PT (9.4-12.5) SECONDS INR (0.8-3.0) APTT (25.1-36.5) SECONDS D-Dimer 0.95 H* (0.0-0.50) mg/L Sodium (137-145) mmol/L Potassium (3.5-5.1) mmol/L Chloride (98-107) mmol/L Carbon Dioxide (22-30) mmol/L Anion Gap (5-15) MEQ/L BUN (7-17) mg/dL Creatinine (0.52-1.04) mg/dL Estimated GFR ML/MIN Glucose (74-106) mg/dL Calcium (8.4-10.2) mg/dL Total Bilirubin (0.2-1.3) mg/dL AST (14-36) U/L ALT (0-35) U/L Alkaline Phosphatase (38-126) U/L Troponin I 0.152 H* (0.000-0.034) ng/mL NT-Pro-B Natriuret Pep (<300) pg/mL Serum Total Protein (6.3-8.2) g/dL Albumin (3.5-5.0) g/dL Urine Color (Yellow) Urine Appearance (Clear) Urine pH (4.6-8.0) Ur Specific [place] (1.005-1.030) Urine Protein (Negative) Urine Glucose (UA) (Negative) mg/dL Urine Ketones (Negative) Urine Blood (Negative) Urine Nitrite (Negative) Urine Bilirubin (Negative) Urine Urobilinogen (0.2) mg/dL Ur Leukocyte Esterase (Negative) U Hyaline Cast (Auto) (0-2) /LPF Urine Microscopic RBC (0-5) /HPF Urine Microscopic WBC (0-5) /HPF Ur Epithelial Cells (None Seen) /HPF Urine Bacteria (None Seen) /HPF Urine Culture Reflexed (NO) Influenza Type A Ag NEGATIVE (NEGATIVE) Influenza Type B Ag NEGATIVE (NEGATIVE) RSV (PCR) NEGATIVE (NEGATIVE) SARS-CoV-2 (PCR) NEGATIVE (NEGATIVE) 07/24/23 07/24/23 Range/Units 10:32 10:32 WBC 5.7 (4.0-10.5) x10^3/uL RBC 3.54 L (4.1-5.4) x10^6/uL Hgb 11.0 L (12.0-16.0) g/dL Hct 32.7 L (35-47) % MCV 92.4 (78-100) fL MCH 31.1 (26-32) pg MCHC 33.6 (32-36) g/dL RDW 13.8 (11.5-14.0) % Plt Count 227 (150-450) x10^3/uL MPV 10.0 (7.5-11.0) fL Gran % 52.4 (36.0-66.0) % Immature Gran % (Auto) 0.2 (0.00-0.4) % Nucleat RBC Rel Count 0.0 (0.00-0.1) % Eos # (Auto) 0.08 (0-0.5) x10^3/uL Immature Gran # (Auto) 0.01 (0.00-0.03) x10^3u/L Absolute Lymphs (auto) 1.86 (1.0-4.6) x10^3/uL Absolute Monos (auto) 0.72 (0.0-1.3) x10^3/uL Absolute Nucleated RBC 0.00 (0.00-0.01) x10^3u/L Lymphocytes % 32.8 (24.0-44.0) % Monocytes % 12.7 H (0.0-12.0) % Eosinophils % 1.4 (0.00-5.0) % Basophils % 0.5 (0.0-0.4) % Absolute Granulocytes 2.97 (1.4-6.9) x10^3/uL Basophils # 0.03 (0-0.4) x10^3/uL PT (9.4-12.5) SECONDS INR (0.8-3.0) APTT (25.1-36.5) SECONDS D-Dimer (0.0-0.50) mg/L Sodium 134 L (137-145) mmol/L Potassium 3.3 L (3.5-5.1) mmol/L Chloride 101 (98-107) mmol/L Carbon Dioxide 25 (22-30) mmol/L Anion Gap 11.5 (5-15) MEQ/L BUN 8 (7-17) mg/dL Creatinine 0.92 (0.52-1.04) mg/dL Estimated GFR 64.5 ML/MIN Glucose 118 H (74-106) mg/dL Calcium 8.4 (8.4-10.2) mg/dL Total Bilirubin 1.00 (0.2-1.3) mg/dL AST 20 (14-36) U/L ALT 16 (0-35) U/L Alkaline Phosphatase 73 (38-126) U/L Troponin I (0.000-0.034) ng/mL NT-Pro-B Natriuret Pep 551 (<300) pg/mL Serum Total Protein 6.9 (6.3-8.2) g/dL Albumin 3.8 (3.5-5.0) g/dL Urine Color (Yellow) Urine Appearance (Clear) Urine pH (4.6-8.0) Ur Specific [place] (1.005-1.030) Urine Protein (Negative) Urine Glucose (UA) (Negative) mg/dL Urine Ketones (Negative) Urine Blood (Negative) Urine Nitrite (Negative) Urine Bilirubin (Negative) Urine Urobilinogen (0.2) mg/dL Ur Leukocyte Esterase (Negative) U Hyaline Cast (Auto) (0-2) /LPF Urine Microscopic RBC (0-5) /HPF Urine Microscopic WBC (0-5) /HPF Ur Epithelial Cells (None Seen) /HPF Urine Bacteria (None Seen) /HPF Urine Culture Reflexed (NO) Influenza Type A Ag (NEGATIVE) Influenza Type B Ag (NEGATIVE) RSV (PCR) (NEGATIVE) SARS-CoV-2 (PCR) (NEGATIVE) - Progress Progress: improved Progress Note: Case discussed with Reshma Oconnell armature and rotor winder at [facility]. She states there are no beds available at [place] and advised to try [facility]. Case discussed with Dr. Oconnell at 5:25 PM 07/24/23 17:29 Case discussed with , hospitalist at [facility] who accepts transfer. Transfer accepted the 6:23 PM 07/24/23 18:23 We were unable to find transport for Caridad Rios. Troponins are trending downward. Case discussed with Dr. Albert who accepts admission to observation. Plan of care discussed with patient. She agrees to admission to [facility] for further evaluation and treatment. 07/24/23 18:36 77-year-old female presents to our ED for evaluation of shortness of breath. Workup reveals an emphysema likely COPD exacerbation. Patient also has elevated troponins that are trending downward. Patient received aspirin in our ED also received heparin. Patient with hypokalemia. Potassium and magnesium administered. Patient also received antibiotics azithromycin and Rocephin. Solu-Medrol 125 administered as well. Portions of this note were created with voice recognition technology. There may be grammatical, spelling, punctuation or sound alike errors Complexity problem addressed is moderate acute complicated No critical care time Complexity of data reviewed and analyzed is extensive. Test ordered test reviewed her results analyzed and correlated clinically with history and physical examination. Management discussed with armature and rotor winder hospitalist as above Risk of complication and or risk of morbidity/mortality patient management is high. Patient requires hospitalization for further evaluation and treatment. Vital stable. Time spent admit patient is approximately 35 minutes. Plan of ca re established for shared decision making. No social determinants of health present impede follow-up. Portions of this note were created with voice recognition technology. There may be grammatical, spelling, punctuation or sound alike errors 07/24/23 23:16 07/24/23 23:18 Counseled pt/family regarding: lab results, diagnosis, rad results - Departure Departure Disposition: Observation Clinical Impression: Hypokalemia, Shortness of breath, Renal cyst, left, Atherosclerosis, ACS (acute coronary syndrome) Condition: Stable Critical Care Time: No Referrals: JAEL LEHMAN [Primary Care Provider] - Follow up/PCP as directed
[2023-07-24] MEDS ORDERED: DUONEB 0.5-3 MG/3 ml Neb IH ONE (10:40)
[2023-07-24] MEDS: DUONEB 0.5-3 MG/3 ml Neb IH ONE (10:42)
[2023-07-24 11:03] LABS: Absolute Neutrophil Ct (ANC) 2.97 x10^3/uL (1.4-6.9); BASOPHIL % 0.5 % (0.0-0.4); Basophil (Absolute #) 0.03 x10^3/uL (0-0.4); Eosinophil % 1.4 % (0.00-5.0); Eosinophil (Absolute #) 0.08 x10^3/uL (0-0.5); Hematocrit 32.7 % (35-47); IMMATURE GRAN # 0.01 x10^3u/L (0.00-0.03); IMMATURE GRAN % 0.2 % (0.00-0.4); Lymphocyte (Absolute #) 1.86 x10^3/uL (1.0-4.6); Lymphocytes % 32.8 % (24.0-44.0); Mean Cell Volume 92.4 fL (78-100); Mean Corpuscular Hemoglobin 31.1 pg (26-32); Mean Corpuscular Hgb Concent. 33.6 g/dL (32-36); Monocyte (Absolute #) 0.72 x10^3/uL (0.0-1.3); Monocytes % 12.7 % (0.0-12.0); Neutrophil % 52.4 % (36.0-66.0); Platelet Count 227 x10^3/uL (150-450); Red Blood Count 3.54 x10^6/uL (4.1-5.4); Red Cell Distribution Width 13.8 % (11.5-14.0); White Blood Count 5.7 x10^3/uL (4.0-10.5)
[2023-07-24 11:27] LABS: ALBUMIN 3.8 g/dL (3.5-5.0); ANION GAP 11.5 MEQ/L (5-15); Calcium 8.4 mg/dL (8.4-10.2); Creatinine 1 0.92 mg/dL (0.52-1.04); EST GLOMERULAR FILTRATION RATE 64.5 ML/MIN; Potassium 3.3 mmol/L (3.5-5.1); Total Protein 6.9 g/dL (6.3-8.2)
[2023-07-24 11:39] LABS: INFLUENZA A NEGATIVE (NEGATIVE); INFLUENZA B NEGATIVE (NEGATIVE); RESPIRATORY SYNCTIAL VIRUS NEGATIVE (NEGATIVE); SARS-CoV-2 Xpert Express NEGATIVE (NEGATIVE)
[2023-07-24] MEDS ORDERED: Magnesium 1 Gm / 100 Ml D5W*** 200 ML IV ONE (11:41)
[2023-07-24] MEDS: Magnesium 1 Gm / 100 Ml D5W*** 100 ML IV SCH (11:42)
[2023-07-24 12:26] LABS: Appearance Clear (Clear); Bacteria None Seen /HPF (None Seen); Bilirubin Negative (Negative); Blood Negative (Negative); Epithelial Cells None Seen /HPF (None Seen); Glucose, Urine Negative (Negative); Hyaline Casts NONE SEEN /LPF (0-2); Ketones Negative (Negative); Leukocyte Esterase Trace (Negative); Nitrite Negative (Negative); Ph 6.5 (4.6-8.0); Protein,Urine Dip Trace (Negative); RBC 0-2 /HPF (0-5); WBC 0-2 /HPF (0-5)
[2023-07-24 12:32] LABS: ADD URINE CULTURE? YES (NO)
[2023-07-24] MEDS ORDERED: ROCEPHIN 2 Gm-D5w 50ML BAG** 2 G/50 ML IVPB IV ONE (12:37)
[2023-07-24] MEDS: ROCEPHIN 2 Gm-D5w 50ML BAG** 2 G/50 ML IVPB IV STA (12:39)
[2023-07-24] MEDS ORDERED: Sodium Chloride 0.9% 500 ML 500 ML IV ONE (13:21)
[2023-07-24] MEDS: Sodium Chloride 0.9% 500 ML 500 ML IV SCH (13:28)
--- NOTE | 2023-07-24 13:28 | XRAY ---
Indication: Short of breath. Elevated d-dimer. Multiple contiguous images obtained through the chest using 80 cc Isovue 370 contrast and PE protocol. Comparison: None Good opacification of the pulmonary arteries to include the lobar and segmental branches. No pulmonary embolus. Heart not enlarged. Aorta mildly arteriosclerotic without aneurysm. Patent left subclavian artery stent. A few tiny subcarinal and right hilar calcified nodes. No pathologic mediastinal/hilar lymphadenopathy. Lungs demonstrates mild pulmonary emphysema and minimal bilateral dependent atelectasis. No suspicious pulmonary mass/nodule, infiltrate, or effusion. Bony thorax intact with osteopenia and minimal degenerative changes throughout the spine. Limited upper abdomen demonstrates incompletely visualized left renal cysts, largest 6.8 cm. Impression: 1. Negative pulmonary embolus. No acute cardiopulmonary abnormalities. 2. Chronic findings including pulmonary emphysema, arteriosclerotic disease, chronic bony findings, left renal cysts, and old granulomatous disease.
[2023-07-24] MEDS: POTASSIUM CHLORIDE 20 mEq IN WATER 100ML 20 MEQ/100 ML BAG IV SCH (13:32)
[2023-07-24] MEDS ORDERED: Zithromax 500 MG/ 250 ML NaCl Premix 500 MG/250 ML IVPB IV ONE (13:42)
[2023-07-24] MEDS: Zithromax 500 MG/ 250 ML NaCl Premix 500 MG/250 ML IVPB IV STA (13:43)
[2023-07-24 16:04] LABS: Hematocrit 32.5 % (35-47); Hemoglobin 10.8 g/dL (12.0-16.0); Mean Cell Volume 91.5 fL (78-100); Mean Corpuscular Hemoglobin 30.4 pg (26-32); Mean Corpuscular Hgb Concent. 33.2 g/dL (32-36); Mean Platelet Volume 9.5 fL (7.5-11.0); Platelet Count 211 x10^3/uL (150-450); Red Blood Count 3.55 x10^6/uL (4.1-5.4); Red Cell Distribution Width 13.4 % (11.5-14.0); White Blood Count 5.5 x10^3/uL (4.0-10.5)
[2023-07-24] MEDS ORDERED: BABY ASPIRIN 81 MG CHEW ONE (16:13)
[2023-07-24] MEDS ORDERED: HEPARIN 5000 UNITS/0.5 ML (HIGH RISK MED) ONE (16:13)
[2023-07-24] MEDS ORDERED: Heparin 25,000 units/D5W: USE ORDER SET PROTO 25,000 UNITS/250 ML BAG IV ONE (16:14)
[2023-07-24] MEDS: BABY ASPIRIN 81 MG CHEW PO ONE (16:16)
[2023-07-24] MEDS: Heparin 25,000 units/D5W: USE ORDER SET PROTO 25,000 UNITS/250 ML BAG IV SCH (16:17)
[2023-07-24] MEDS: HEPARIN 5000 UNITS/0.5 ML (HIGH RISK MED) IV STA (16:17)
[2023-07-24 16:20] LABS: INR 1.05 (0.8-3.0); PROTIME 11.4 SECONDS (9.4-12.5); PTT 30.9 SECONDS (25.1-36.5)
[2023-07-24] MEDS ORDERED: solu-MEDROL ONE (20:38)
[2023-07-24] MEDS ORDERED: Sterile H2O 10 ml IJ ONE (20:38)
[2023-07-24] MEDS: solu-MEDROL 125 MG, Sterile H2O 10 ml 2 ML IV ONE (20:39)
--- NOTE | 2023-07-24 23:02 | PCM.HP ---
History of Present Illness - Chief Complaint Chief Complaint: SOB, COPD Exac History of Present Illness: is a 77 year old female with COPD who presents with SOB, wheezing and cough. Denies chest pain. Her symptoms started about 2 days ago and worse with exertion and improves with rest. No fevers, chills, nausea, vomiting or diarrhea. Given a breathing treatment in the ED with improvement. - Review of Systems Constitutional: No Fever, No Chills Eyes: No Symptoms Ears, Nose, & Throat: No Symptoms Respiratory: No Cough, No Short Of Breath Cardiac: No Chest Pain, No Edema, No Syncope Abdominal/Gastrointestinal: No Abdominal Pain, No Nausea, No Vomiting, No Diarrhea Genitourinary Symptoms: No Dysuria Musculoskeletal: No Back Pain, No Neck Pain Skin: No Rash Neurological: No Dizziness, No Focal Weakness, No Sensory Changes Psychological: No Symptoms Endocrine: No Symptoms Hematologic/Lymphatic: No Symptoms Immunological/Allergic: No Symptoms Medications & Allergies Home Medications: Home Medication List Amlodipine Besylate 5 mg PO BID 05/31/21 [History Confirmed 07/25/23] Aspirin EC 81 mg [Ecotrin 81 mg] 81 mg PO HS 05/31/21 [History Confirmed 07/25/23] Carvedilol 3.125 mg [Coreg 3.125 MG] 0.5 tab PO DAILY 05/31/21 [History Confirmed 07/25/23] Clopidogrel Bisulfate [PLAVIX 75 MG Tablet] 75 mg PO HS 05/31/21 [History Confirmed 07/25/23] Isosorbide Mononitrate 30 mg [Imdur 30 MG] 30 mg PO DAILY 05/31/21 [History Confirmed 07/25/23] Nitroglycerin 0.4 mg Tablet [Nitrostat 0.4 MG Tablet] 0.4 mg SL UD PRN 05/31/21 [History Confirmed 07/24/23] Omeprazole 40 mg PO DAILY 05/31/21 [History Confirmed 07/25/23] Cefdinir 300 mg PO BID 07/24/23 [History Confirmed 07/24/23] Allergies/Adverse Reactions: Allergies Allergy/AdvReac Type Severity Reaction Status Date / Time codeine Allergy Severe Nausea and Verified 05/31/21 16:41 Vomiting - Past Medical History Past Medical History: Yes Neurological History: No Pertinent History ENT History: No Pertinent History Cardiac History: Hypertension Respiratory History: Pneumonia Endocrine Medical History: No Pertinent History Musculoskelatal History: Arthritis GI Medical History: GERD History: No Pertinent History Pyscho-Social History: No Pertinent History Reproductive Disorders: No Pertinent History Comment: "Blood clots near my heart" - Past Surgical History Past Surgical History: Yes Neuro Surgical History: No Pertinent History Cardiac History: Cardiac Catheterization, Cardiac Stent Respiratory Surgery: No Pertinent History GI Surgical History: Cholecystectomy Genitourinary Surgical Hx: No Pertinent History Musculskeletal Surgical Hx: No Pertinent History Female Surgical History: No Pertinent History - Social History Smoking Status: Former smoker Exposure to second hand smoke: No Alcohol: Rarely Drug Use: none - Physical Exam Vital Signs: Vital Signs - 24 hr Temp Pulse Resp BP BP Pulse Ox 07/24/23 20:33 95 07/24/23 20:00 70 21 115/57 94 L 07/24/23 19:30 66 15 128/55 94 L 07/24/23 19:00 69 18 113/49 95 07/24/23 18:30 71 22 123/55 95 07/24/23 18:00 78 21 113/55 94 L 07/24/23 17:30 72 17 118/53 94 L 07/24/23 17:00 74 22 111/59 94 L 07/24/23 16:30 77 20 115/61 92 L 07/24/23 16:23 77 24 131/66 96 07/24/23 15:30 76 17 133/58 94 L 07/24/23 15:00 78 15 138/66 95 07/24/23 14:30 88 124/63 07/24/23 14:01 75 22 120/60 96 07/24/23 13:31 74 23 139/62 95 07/24/23 13:22 71 18 96 07/24/23 13:20 69 19 96 07/24/23 13:19 70 07/24/23 12:30 114/56 07/24/23 12:08 69 26 H 131/52 93 L 07/24/23 11:30 79 16 120/67 93 L 07/24/23 11:02 71 21 130/65 92 L 07/24/23 10:57 73 28 H 95 07/24/23 10:36 97 07/24/23 10:30 73 26 H 139/71 97 07/24/23 10:18 97.6 F 71 25 H 150/65 150/65 95 General Appearance: no apparent distress, alert Neurologic Exam: alert, oriented x 3, cooperative, normal mood/affect, nml cerebellar function, nml station & gait, sensation nml, No motor deficits Eye Exam: PERRL/EOMI, eyes nml inspection Ears, Nose, Throat Exam: normal ENT inspection, TMs normal, pharynx normal, moist mucous membranes Neck Exam: normal inspection, non-tender, supple, full range of motion Respiratory Exam: normal breath sounds, lungs clear, No respiratory distress Cardiovascular Exam: regular rate/rhythm, normal heart sounds, normal peripheral pulses Gastrointestinal/Abdomen Exam: soft, normal bowel sounds, No tenderness, No mass Back Exam: normal inspection, normal range of motion, No CVA tenderness, No vertebral tenderness Extremity Exam: normal inspection, normal range of motion, pelvis stable Skin Exam: normal color, warm, dry, No rash Lymphatic Exam: No adenopathy Results - Labs Lab/Micro Results: Lab Results-Last 24 Hours 07/24/23 07/24/23 07/24/23 Range/Units 10:32 10:32 10:32 WBC 5.7 (4.0-10.5) x10^3/uL RBC 3.54 L (4.1-5.4) x10^6/uL Hgb 11.0 L (12.0-16.0) g/dL Hct 32.7 L (35-47) % MCV 92.4 (78-100) fL MCH 31.1 (26-32) pg MCHC 33.6 (32-36) g/dL RDW 13.8 (11.5-14.0) % Plt Count 227 (150-450) x10^3/uL MPV 10.0 (7.5-11.0) fL Gran % 52.4 (36.0-66.0) % Immature Gran % (Auto) 0.2 (0.00-0.4) % Nucleat RBC Rel Count 0.0 (0.00-0.1) % Eos # (Auto) 0.08 (0-0.5) x10^3/uL Immature Gran # (Auto) 0.01 (0.00-0.03) x10^3u/L Absolute Lymphs (auto) 1.86 (1.0-4.6) x10^3/uL Absolute Monos (auto) 0.72 (0.0-1.3) x10^3/uL Absolute Nucleated RBC 0.00 (0.00-0.01) x10^3u/L Lymphocytes % 32.8 (24.0-44.0) % Monocytes % 12.7 H (0.0-12.0) % Eosinophils % 1.4 (0.00-5.0) % Basophils % 0.5 (0.0-0.4) % Absolute Granulocytes 2.97 (1.4-6.9) x10^3/uL Basophils # 0.03 (0-0.4) x10^3/uL PT (9.4-12.5) SECONDS INR (0.8-3.0) APTT (25.1-36.5) SECONDS D-Dimer 0.95 H* (0.0-0.50) mg/L Sodium 134 L (137-145) mmol/L Potassium 3.3 L (3.5-5.1) mmol/L Chloride 101 (98-107) mmol/L Carbon Dioxide 25 (22-30) mmol/L Anion Gap 11.5 (5-15) MEQ/L BUN 8 (7-17) mg/dL Creatinine 0.92 (0.52-1.04) mg/dL Estimated GFR 64.5 ML/MIN Glucose 118 H (74-106) mg/dL Calcium 8.4 (8.4-10.2) mg/dL Total Bilirubin 1.00 (0.2-1.3) mg/dL AST 20 (14-36) U/L ALT 16 (0-35) U/L Alkaline Phosphatase 73 (38-126) U/L Troponin I (0.000-0.034) ng/mL NT-Pro-B Natriuret Pep 551 (<300) pg/mL Serum Total Protein 6.9 (6.3-8.2) g/dL Albumin 3.8 (3.5-5.0) g/dL Urine Color (Yellow) Urine Appearance (Clear) Urine pH (4.6-8.0) Ur Specific [place] (1.005-1.030) Urine Protein (Negative) Urine Glucose (UA) (Negative) mg/dL Urine Ketones (Negative) Urine Blood (Negative) Urine Nitrite (Negative) Urine Bilirubin (Negative) Urine Urobilinogen (0.2) mg/dL Ur Leukocyte Esterase (Negative) U Hyaline Cast (Auto) (0-2) /LPF Urine Microscopic RBC (0-5) /HPF Urine Microscopic WBC (0-5) /HPF Ur Epithelial Cells (None Seen) /HPF Urine Bacteria (None Seen) /HPF Urine Culture Reflexed (NO) Influenza Type A Ag (NEGATIVE) Influenza Type B Ag (NEGATIVE) RSV (PCR) (NEGATIVE) SARS-CoV-2 (PCR) (NEGATIVE) 07/24/23 07/24/23 07/24/23 Range/Units 10:32 10:47 14:26 WBC (4.0-10.5) x10^3/uL RBC (4.1-5.4) x10^6/uL Hgb (12.0-16.0) g/dL Hct (35-47) % MCV (78-100) fL MCH (26-32) pg MCHC (32-36) g/dL RDW (11.5-14.0) % Plt Count (150-450) x10^3/uL MPV (7.5-11.0) fL Gran % (36.0-66.0) % Immature Gran % (Auto) (0.00-0.4) % Nucleat RBC Rel Count (0.00-0.1) % Eos # (Auto) (0-0.5) x10^3/uL Immature Gran # (Auto) (0.00-0.03) x10^3u/L Absolute Lymphs (auto) (1.0-4.6) x10^3/uL Absolute Monos (auto) (0.0-1.3) x10^3/uL Absolute Nucleated RBC (0.00-0.01) x10^3u/L Lymphocytes % (24.0-44.0) % Monocytes % (0.0-12.0) % Eosinophils % (0.00-5.0) % Basophils % (0.0-0.4) % Absolute Granulocytes (1.4-6.9) x10^3/uL Basophils # (0-0.4) x10^3/uL PT (9.4-12.5) SECONDS INR (0.8-3.0) APTT (25.1-36.5) SECONDS D-Dimer (0.0-0.50) mg/L Sodium (137-145) mmol/L Potassium (3.5-5.1) mmol/L Chloride (98-107) mmol/L Carbon Dioxide (22-30) mmol/L Anion Gap (5-15) MEQ/L BUN (7-17) mg/dL Creatinine (0.52-1.04) mg/dL Estimated GFR ML/MIN Glucose (74-106) mg/dL Calcium (8.4-10.2) mg/dL Total Bilirubin (0.2-1.3) mg/dL AST (14-36) U/L ALT (0-35) U/L Alkaline Phosphatase (38-126) U/L Troponin I 0.152 H* 0.116 H* (0.000-0.034) ng/mL NT-Pro-B Natriuret Pep (<300) pg/mL Serum Total Protein (6.3-8.2) g/dL Albumin (3.5-5.0) g/dL Urine Color (Yellow) Urine Appearance (Clear) Urine pH (4.6-8.0) Ur Specific [place] (1.005-1.030) Urine Protein (Negative) Urine Glucose (UA) (Negative) mg/dL Urine Ketones (Negative) Urine Blood (Negative) Urine Nitrite (Negative) Urine Bilirubin (Negative) Urine Urobilinogen (0.2) mg/dL Ur Leukocyte Esterase (Negative) U Hyaline Cast (Auto) (0-2) /LPF Urine Microscopic RBC (0-5) /HPF Urine Microscopic WBC (0-5) /HPF Ur Epithelial Cells (None Seen) /HPF Urine Bacteria (None Seen) /HPF Urine Culture Reflexed (NO) Influenza Type A Ag NEGATIVE (NEGATIVE) Influenza Type B Ag NEGATIVE (NEGATIVE) RSV (PCR) NEGATIVE (NEGATIVE) SARS-CoV-2 (PCR) NEGATIVE (NEGATIVE) 07/24/23 07/24/23 07/24/23 Range/Units 16:00 16:00 18:48 WBC 5.5 (4.0-10.5) x10^3/uL RBC 3.55 L (4.1-5.4) x10^6/uL Hgb 10.8 L (12.0-16.0) g/dL Hct 32.5 L (35-47) % MCV 91.5 (78-100) fL MCH 30.4 (26-32) pg MCHC 33.2 (32-36) g/dL RDW 13.4 (11.5-14.0) % Plt Count 211 (150-450) x10^3/uL MPV 9.5 (7.5-11.0) fL Gran % (36.0-66.0) % Immature Gran % (Auto) (0.00-0.4) % Nucleat RBC Rel Count (0.00-0.1) % Eos # (Auto) (0-0.5) x10^3/uL Immature Gran # (Auto) (0.00-0.03) x10^3u/L Absolute Lymphs (auto) (1.0-4.6) x10^3/uL Absolute Monos (auto) (0.0-1.3) x10^3/uL Absolute Nucleated RBC (0.00-0.01) x10^3u/L Lymphocytes % (24.0-44.0) % Monocytes % (0.0-12.0) % Eosinophils % (0.00-5.0) % Basophils % (0.0-0.4) % Absolute Granulocytes (1.4-6.9) x10^3/uL Basophils # (0-0.4) x10^3/uL PT 11.4 (9.4-12.5) SECONDS INR 1.05 (0.8-3.0) APTT 30.9 (25.1-36.5) SECONDS D-Dimer (0.0-0.50) mg/L Sodium (137-145) mmol/L Potassium (3.5-5.1) mmol/L Chloride (98-107) mmol/L Carbon Dioxide (22-30) mmol/L Anion Gap (5-15) MEQ/L BUN (7-17) mg/dL Creatinine (0.52-1.04) mg/dL Estimated GFR ML/MIN Glucose (74-106) mg/dL Calcium (8.4-10.2) mg/dL Total Bilirubin (0.2-1.3) mg/dL AST (14-36) U/L ALT (0-35) U/L Alkaline Phosphatase (38-126) U/L Troponin I 0.107 H* (0.000-0.034) ng/mL NT-Pro-B Natriuret Pep (<300) pg/mL Serum Total Protein (6.3-8.2) g/dL Albumin (3.5-5.0) g/dL Urine Color (Yellow) Urine Appearance (Clear) Urine pH (4.6-8.0) Ur Specific [place] (1.005-1.030) Urine Protein (Negative) Urine Glucose (UA) (Negative) mg/dL Urine Ketones (Negative) Urine Blood (Negative) Urine Nitrite (Negative) Urine Bilirubin (Negative) Urine Urobilinogen (0.2) mg/dL Ur Leukocyte Esterase (Negative) U Hyaline Cast (Auto) (0-2) /LPF Urine Microscopic RBC (0-5) /HPF Urine Microscopic WBC (0-5) /HPF Ur Epithelial Cells (None Seen) /HPF Urine Bacteria (None Seen) /HPF Urine Culture Reflexed (NO) Influenza Type A Ag (NEGATIVE) Influenza Type B Ag (NEGATIVE) RSV (PCR) (NEGATIVE) SARS-CoV-2 (PCR) (NEGATIVE) 07/24/23 07/24/23 Range/Units 18:48 Unknown WBC (4.0-10.5) x10^3/uL RBC (4.1-5.4) x10^6/uL Hgb (12.0-16.0) g/dL Hct (35-47) % MCV (78-100) fL MCH (26-32) pg MCHC (32-36) g/dL RDW (11.5-14.0) % Plt Count (150-450) x10^3/uL MPV (7.5-11.0) fL Gran % (36.0-66.0) % Immature Gran % (Auto) (0.00-0.4) % Nucleat RBC Rel Count (0.00-0.1) % Eos # (Auto) (0-0.5) x10^3/uL Immature Gran # (Auto) (0.00-0.03) x10^3u/L Absolute Lymphs (auto) (1.0-4.6) x10^3/uL Absolute Monos (auto) (0.0-1.3) x10^3/uL Absolute Nucleated RBC (0.00-0.01) x10^3u/L Lymphocytes % (24.0-44.0) % Monocytes % (0.0-12.0) % Eosinophils % (0.00-5.0) % Basophils % (0.0-0.4) % Absolute Granulocytes (1.4-6.9) x10^3/uL Basophils # (0-0.4) x10^3/uL PT (9.4-12.5) SECONDS INR (0.8-3.0) APTT 51.1 H (25.1-36.5) SECONDS D-Dimer (0.0-0.50) mg/L Sodium (137-145) mmol/L Potassium (3.5-5.1) mmol/L Chloride (98-107) mmol/L Carbon Dioxide (22-30) mmol/L Anion Gap (5-15) MEQ/L BUN (7-17) mg/dL Creatinine (0.52-1.04) mg/dL Estimated GFR ML/MIN Glucose (74-106) mg/dL Calcium (8.4-10.2) mg/dL Total Bilirubin (0.2-1.3) mg/dL AST (14-36) U/L ALT (0-35) U/L Alkaline Phosphatase (38-126) U/L Troponin I (0.000-0.034) ng/mL NT-Pro-B Natriuret Pep (<300) pg/mL Serum Total Protein (6.3-8.2) g/dL Albumin (3.5-5.0) g/dL Urine Color Yellow (Yellow) Urine Appearance Clear (Clear) Urine pH 6.5 (4.6-8.0) Ur Specific [place] 1.010 (1.005-1.030) Urine Protein Trace A (Negative) Urine Glucose (UA) Negative (Negative) mg/dL Urine Ketones Negative (Negative) Urine Blood Negative (Negative) Urine Nitrite Negative (Negative) Urine Bilirubin Negative (Negative) Urine Urobilinogen 1.0 A (0.2) mg/dL Ur Leukocyte Esterase Trace A (Negative) U Hyaline Cast (Auto) NONE SEEN (0-2) /LPF Urine Microscopic RBC 0-2 (0-5) /HPF Urine Microscopic WBC 0-2 (0-5) /HPF Ur Epithelial Cells None Seen (None Seen) /HPF Urine Bacteria None Seen (None Seen) /HPF Urine Culture Reflexed YES (NO) Influenza Type A Ag (NEGATIVE) Influenza Type B Ag (NEGATIVE) RSV (PCR) (NEGATIVE) SARS-CoV-2 (PCR) (NEGATIVE) - Radiology Impressions Radiology Exams & Impressions: Radiology Procedures Category Date Time Status CHEST WITH CONTRAST [CT] Stat Exams 07/24/23 11:35 Completed - Other Procedures and Tests Respiratory Therapy 07/24/23 10:57 Respiratory Therapy Assessment DAILY Assessment/Plan (1) Shortness of breath Current Visit: Yes Status: Acute Assessment & Plan: 1. Secondary to COPD 2. Given duonebs, solumedrol, azithro in the ED 3. Can transition to PO steroids tomorrow 4. Nominal troponin leak likely related to COPD exacerbations, No ekg changes and pt without any chest pain. Code(s): R06.02 - SHORTNESS OF BREATH Telemedicine Encounter - Telemedicine Encounter Telemedicine Encounter: The entirety of this encounter was performed via Telemedicine"
[2023-07-25] MEDS: DUONEB 0.5-3 MG/3 ml Neb IH PRN (01:07)
[2023-07-25] MEDS ORDERED: Sodium Chloride 0.9% 500 ML 500 ML IV ONE (02:08)
[2023-07-25 04:36] LABS: Hematocrit 30.4 % (35-47); Hemoglobin 10.1 g/dL (12.0-16.0); Mean Cell Volume 93.5 fL (78-100); Mean Corpuscular Hemoglobin 31.1 pg (26-32); Mean Corpuscular Hgb Concent. 33.2 g/dL (32-36); Mean Platelet Volume 9.9 fL (7.5-11.0); Platelet Count 216 x10^3/uL (150-450); Red Blood Count 3.25 x10^6/uL (4.1-5.4); Red Cell Distribution Width 13.6 % (11.5-14.0); White Blood Count 3.2 x10^3/uL (4.0-10.5)
[2023-07-25 08:12] LABS: ALBUMIN 3.2 g/dL (3.5-5.0); ANION GAP 8.9 MEQ/L (5-15); BILIRUBIN,TOTAL 0.3 mg/dL (0.2-1.3); Creatinine 1 0.84 mg/dL (0.52-1.04); MAGNESIUM 2.6 mg/dL (1.6-2.3); Potassium 3.8 mmol/L (3.5-5.1); Total Protein 5.8 g/dL (6.3-8.2)
[2023-07-25 09:22] VITALS: TEMP 97.9
[2023-07-25] MEDS ORDERED: ROCEPHIN 1 GM / 100 ML NaCl 1 GM/100 ML IVPB IV SCH (10:00)
[2023-07-25 10:05] VITALS: BP 142/68; PULSE 80; RESP 27; O2SAT 97
[2023-07-25] MEDS ORDERED: DUONEB 0.5-3 MG/3 ml Neb IH SCH (13:00)
--- NOTE | 2023-07-25 13:20 | PCM.DS ---
Discharge Summary Date of Admission: 07/24/23 23:34 Date of Discharge: 07/25/23 Admitting Physician: KWADWO YOUNG MD Primary Care Provider: JAEL LEHMAN Allergies Allergies codeine Allergy (Severe, Verified 05/31/21 16:41) Nausea and Vomiting Hospital Summary - Hospital Course Hospital Course: 07/25/23 is a 77 year old female with PMHX of HTN, GERD, and blood clots on plavix. Pt presented with SOB, wheezing and cough. Denies chest pain. Her symptoms started about 2 days ago and worse with exertion and improves with rest. No fevers, chills, nausea, vomiting or diarrhea. Given a breathing treatment in the ED with improvement. D-D elias 0.[address] negative for PE. Trop elevated on admission and trended downward. Pt resting in bed today. Discussed in detail everything going on with pt as she felt uninformed this morning. Pt explains she has never been dx with COPD in the past and this is a new dx for her. She was a smoker in the past. Pt was on a heparin gtt in ER this has since been stopped. Trops continued to trend down. She is awaiting tx to [place] higher level of care as we do not have cardiology here. Pt is on 3LNC @ 97%, BL RA. Pt denies CP, SOB, abd. pain, N/V/D. - Vitals & Intake/Output Vital Signs: Vital Signs Temperature 97.9 F 07/25/23 09:19 Pulse Rate 80 07/25/23 10:02 Respiratory Rate 27 H 07/25/23 10:02 Blood Pressure 142/68 07/25/23 10:02 O2 Sat by Pulse Oximetry 97 07/25/23 10:02 Intake & Output: Intake & Output 07/23/23 07/24/23 07/25/23 07/26/23 11:59 11:59 11:59 11:59 Intake Total 663 Balance 663 Weight 79.379 kg 83.5 kg - Lab Result Diagrams: 07/25/23 04:09 07/25/23 07:00 Lab Results-Last 24 Hrs: Lab Results-Last 24 Hours 07/24/23 07/24/23 07/24/23 Range/Units 14:26 16:00 16:00 WBC 5.5 (4.0-10.5) x10^3/uL RBC 3.55 L (4.1-5.4) x10^6/uL Hgb 10.8 L (12.0-16.0) g/dL Hct 32.5 L (35-47) % MCV 91.5 (78-100) fL MCH 30.4 (26-32) pg MCHC 33.2 (32-36) g/dL RDW 13.4 (11.5-14.0) % Plt Count 211 (150-450) x10^3/uL MPV 9.5 (7.5-11.0) fL PT 11.4 (9.4-12.5) SECONDS INR 1.05 (0.8-3.0) APTT 30.9 (25.1-36.5) SECONDS Sodium (137-145) mmol/L Potassium (3.5-5.1) mmol/L Chloride (98-107) mmol/L Carbon Dioxide (22-30) mmol/L Anion Gap (5-15) MEQ/L BUN (7-17) mg/dL Creatinine (0.52-1.04) mg/dL Estimated GFR ML/MIN Glucose (74-106) mg/dL Calcium (8.4-10.2) mg/dL Magnesium (1.6-2.3) mg/dL Total Bilirubin (0.2-1.3) mg/dL AST (14-36) U/L ALT (0-35) U/L Alkaline Phosphatase (38-126) U/L Troponin I 0.116 H* (0.000-0.034) ng/mL Serum Total Protein (6.3-8.2) g/dL Albumin (3.5-5.0) g/dL 07/24/23 07/24/23 07/24/23 Range/Units 18:48 18:48 23:01 WBC (4.0-10.5) x10^3/uL RBC (4.1-5.4) x10^6/uL Hgb (12.0-16.0) g/dL Hct (35-47) % MCV (78-100) fL MCH (26-32) pg MCHC (32-36) g/dL RDW (11.5-14.0) % Plt Count (150-450) x10^3/uL MPV (7.5-11.0) fL PT (9.4-12.5) SECONDS INR (0.8-3.0) APTT 51.1 H 48.5 H (25.1-36.5) SECONDS Sodium (137-145) mmol/L Potassium (3.5-5.1) mmol/L Chloride (98-107) mmol/L Carbon Dioxide (22-30) mmol/L Anion Gap (5-15) MEQ/L BUN (7-17) mg/dL Creatinine (0.52-1.04) mg/dL Estimated GFR ML/MIN Glucose (74-106) mg/dL Calcium (8.4-10.2) mg/dL Magnesium (1.6-2.3) mg/dL Total Bilirubin (0.2-1.3) mg/dL AST (14-36) U/L ALT (0-35) U/L Alkaline Phosphatase (38-126) U/L Troponin I 0.107 H* (0.000-0.034) ng/mL Serum Total Protein (6.3-8.2) g/dL Albumin (3.5-5.0) g/dL 07/24/23 07/25/23 07/25/23 Range/Units 23:01 04:09 04:09 WBC 3.2 L (4.0-10.5) x10^3/uL RBC 3.25 L (4.1-5.4) x10^6/uL Hgb 10.1 L (12.0-16.0) g/dL Hct 30.4 L (35-47) % MCV 93.5 (78-100) fL MCH 31.1 (26-32) pg MCHC 33.2 (32-36) g/dL RDW 13.6 (11.5-14.0) % Plt Count 216 (150-450) x10^3/uL MPV 9.9 (7.5-11.0) fL PT (9.4-12.5) SECONDS INR (0.8-3.0) APTT 36.5 (25.1-36.5) SECONDS Sodium (137-145) mmol/L Potassium (3.5-5.1) mmol/L Chloride (98-107) mmol/L Carbon Dioxide (22-30) mmol/L Anion Gap (5-15) MEQ/L BUN (7-17) mg/dL Creatinine (0.52-1.04) mg/dL Estimated GFR ML/MIN Glucose (74-106) mg/dL Calcium (8.4-10.2) mg/dL Magnesium (1.6-2.3) mg/dL Total Bilirubin (0.2-1.3) mg/dL AST (14-36) U/L ALT (0-35) U/L Alkaline Phosphatase (38-126) U/L Troponin I 0.091 H* (0.000-0.034) ng/mL Serum Total Protein (6.3-8.2) g/dL Albumin (3.5-5.0) g/dL 07/25/23 07/25/23 Range/Units 07:00 07:03 WBC (4.0-10.5) x10^3/uL RBC (4.1-5.4) x10^6/uL Hgb (12.0-16.0) g/dL Hct (35-47) % MCV (78-100) fL MCH (26-32) pg MCHC (32-36) g/dL RDW (11.5-14.0) % Plt Count (150-450) x10^3/uL MPV (7.5-11.0) fL PT (9.4-12.5) SECONDS INR (0.8-3.0) APTT 32.5 (25.1-36.5) SECONDS Sodium 137 (137-145) mmol/L Potassium 3.8 (3.5-5.1) mmol/L Chloride 108 H (98-107) mmol/L Carbon Dioxide 24 (22-30) mmol/L Anion Gap 8.9 (5-15) MEQ/L BUN 9 (7-17) mg/dL Creatinine 0.84 (0.52-1.04) mg/dL Estimated GFR 72.0 ML/MIN Glucose 248 H (74-106) mg/dL Calcium 8.0 L (8.4-10.2) mg/dL Magnesium 2.6 H (1.6-2.3) mg/dL Total Bilirubin 0.30 (0.2-1.3) mg/dL AST 18 (14-36) U/L ALT 16 (0-35) U/L Alkaline Phosphatase 68 (38-126) U/L Troponin I (0.000-0.034) ng/mL Serum Total Protein 5.8 L (6.3-8.2) g/dL Albumin 3.2 L (3.5-5.0) g/dL Micro Results-Entire Visit: Microbiology 07/24/23 Unknown Urine Culture - Preliminary Clean Catch Midstream NO GROWTH TO DATE - Radiology Exams Ordered Rad Exams-Entire Visit: Radiology Procedures Category Date Time Status CHEST WITH CONTRAST [CT] Stat Exams 07/24/23 11:35 Completed - Procedures and Test Procedures and Tests throughout Hospitalization: Therapy Orders & Screens 07/24/23 10:57 Respiratory Therapy Assessment DAILY Comment: 07/25/23 01:11 Respiratory Therapy Assessment DAILY Comment: Diagnosis: SOB, COPD Exac 07/25/23 01:46 Oxygen Nasal Cannula 3 lpm Comment: Diagnosis: SOB, COPD Exac Discharge Exam General Appearance: no apparent distress, alert Neurologic Exam: alert, oriented x 3, cooperative, normal mood/affect, nml cerebellar function, sensation nml, No motor deficits Eye Exam: PERRL, EOMI, eyes nml inspection Ears, Nose, Throat Exam: normal ENT inspection, pharynx normal, moist mucous membranes Neck Exam: normal inspection, non-tender, supple, full range of motion Respiratory Exam: normal breath sounds, lungs clear, No respiratory distress Cardiovascular Exam: regular rate/rhythm, normal heart sounds Gastrointestinal/Abdomen Exam: soft, No tenderness, No mass Pelvic Exam: deferred Rectal Exam: deferred Back Exam: normal inspection, normal range of motion, No CVA tenderness, No vertebral tenderness Extremity Exam: normal inspection, normal range of motion Skin Exam: normal color, warm, dry Final Diagnosis/Problem List - Final Discharge Diagnosis/Problem (1) ACS (acute coronary syndrome) Current Visit: Yes Status: Acute Assessment & Plan: - Trop 0.152, 0.116, 0.107, 0.091 - D-Dimer 0.95- CT negative for PE - EKG - Tele - Heparin gtt stopped last night - Denies CP today - 3LNC 97% - Baseline RA - Pending tx to [facility] Code(s): I24.9 - ACUTE ISCHEMIC HEART DISEASE, UNSPECIFIED (2) Hypokalemia Current Visit: Yes Status: Acute Assessment & Plan: - On admission 3.3 replaced - resolved K+ 3.8 Code(s): E87.6 - HYPOKALEMIA (3) Shortness of breath Current Visit: Yes Status: Acute Assessment & Plan: - 2:2 emphysema as seen on CT - 3LNC 97% - Baseline RA - Chest CTA Impression: 1. Negative pulmonary embolus. No acute cardiopulmonary abnormalities. 2. Chronic findings including pulmonary emphysema, arteriosclerotic disease, chronic bony findings, left renal cysts, and old granulomatous disease. - steroids, antibiotics started in ER - duonebs, antibiotics started IP Code(s): R06.02 - SHORTNESS OF BREATH (4) Hypermagnesemia Current Visit: Yes Status: Acute Assessment & Plan: - Mg+ 2.6 - IVF Code(s): E83.41 - HYPERMAGNESEMIA - Discharge Disposition: Home, Self-Care Condition: Stable Prescriptions: No Action Aspirin EC 81 mg [Ecotrin 81 mg] 81 mg PO HS Isosorbide Mononitrate 30 mg [Imdur 30 MG] 30 mg PO DAILY Clopidogrel Bisulfate [PLAVIX 75 MG Tablet] 75 mg PO HS Carvedilol 3.125 mg [Coreg 3.125 MG] 0.5 tab PO DAILY Omeprazole 40 mg PO DAILY Nitroglycerin 0.4 mg Tablet [Nitrostat 0.4 MG Tablet] 0.4 mg SL UD PRN PRN Reason: Chest Pain Amlodipine Besylate 5 mg PO BID Cefdinir 300 mg PO BID Follow up with: JAEL LEHMAN [Primary Care Provider] -
--- NOTE | 2023-07-25 14:10 | PCM.DCORD ---
- Discharge Discharge Date: 07/25/23 Disposition: Home, Self-Care Condition: Stable Prescriptions: No Action Aspirin EC 81 mg [Ecotrin 81 mg] 81 mg PO HS Isosorbide Mononitrate 30 mg [Imdur 30 MG] 30 mg PO DAILY Clopidogrel Bisulfate [PLAVIX 75 MG Tablet] 75 mg PO HS Carvedilol 3.125 mg [Coreg 3.125 MG] 0.5 tab PO DAILY Omeprazole 40 mg PO DAILY Nitroglycerin 0.4 mg Tablet [Nitrostat 0.4 MG Tablet] 0.4 mg SL UD PRN PRN Reason: Chest Pain Amlodipine Besylate 5 mg PO BID Cefdinir 300 mg PO BID Follow up with: JAEL LEHMAN [Primary Care Provider] -
== END 2023-07-25 10:30 | disposition short-term general hospital (02) ==
LOC: ED 10:08 → ICU 23:34
PROVIDERS: ADMIT Student in an Organized Health Care Education/Training Program; ATTEND Student in an Organized Health Care Education/Training Program
DX: I24.9 Acute ischemic heart disease, unspecified (principal); E87.6 Hypokalemia; R06.02 Shortness of breath; E83.41 Hypermagnesemia; J44.9 Chronic obstructive pulmonary disease, unspecified; I10 Essential (primary) hypertension; Z79.899 Other long term (current) drug therapy; Z20.828 Contact with and (suspected) exposure to other viral communicable diseases; Z79.01 Long term (current) use of anticoagulants; Z87.891 Personal history of nicotine dependence
CPT/HCPCS: 0241U; 36000; 36415; 71260; 80053; 81001; 83735; 83880; 84484; 85025; 85027; 85379; 85610; 85730; 87040; 87086; 93005; 93041; 93268; 94640; 94760; 96365; 96375; 99285; G0378; Q3014; J0456; J0696; J1644; J2930; J3475; J3480; A9270-GY

== ENCOUNTER 2024-04-19 14:47 | Emergency (ER) | payer MEDICARE, BC ==
[2024-04-19 15:24] VITALS: TEMP 97.7
[2024-04-19] MEDS ORDERED: MORPHINE SULFATE 4 MG INJ ONE (15:51)
[2024-04-19] MEDS ORDERED: ZOFRAN ODT 4 MG ONE (15:51)
[2024-04-19] MEDS: ZOFRAN ODT 4 MG PO ONE (15:53)
[2024-04-19] MEDS: MORPHINE SULFATE 4 MG INJ IM ONE (15:53)
[2024-04-19 15:59] VITALS: RESP 17
[2024-04-19] MEDS ORDERED: CLONIDINE 0.1 MG TABLET ONE (16:32)
[2024-04-19] MEDS: CLONIDINE 0.1 MG TABLET PO ONE (16:33)
--- NOTE | 2024-04-19 17:21 | ERPHSYRPT ---
- History of Present Illness Time Seen by Provider: 04/19/24 14:51 Source: patient Exam Limitations: no limitations Patient Subjective Stated Complaint: C/O left hip pain. Denies falls or injury. Pain radiates into left buttocks. Triage Nursing Assessment: Patient brought back to ER in a W/C. Transferred from chair to bed with standby assist of one staff. Gait is impaired; patient not bearing full amount of weight to LLE during transfer. No skin alterations noted to areas of reported pain. Left pedal pulse is present. Physician History: 78-year-old female with history of hypertension, hyperlipidemia, coronary artery disease presented in the ER with complains of left hip pain for the last week and a half. Patient was seen at [place] with negative x-rays per her. She denies any fall or trauma. Pain is more in the left hip area with some radiation to the left upper lateral thigh. Moderate to severe sharp, get worse with ambulation. Patient got tramadol from outpatient but cannot take it because of nausea. Denies any numbness tingling or weakness of lower extremities, no loss of bowel or bladder control or saddle anesthesia. Patient blood pressure is in 200 but has not taken her afternoon medications. Allergies/Adverse Reactions: codeine Allergy (Severe, Verified 04/19/24 15:13) Nausea and Vomiting tramadol Adverse Reaction (Verified 04/19/24 15:13) Vomiting Home Medications: Aspirin EC 81 mg [Ecotrin 81 mg] 81 mg PO HS 05/31/21 [History] Carvedilol 3.125 mg [Coreg 3.125 MG] 3.125 mg PO DAILY 05/31/21 [History] Isosorbide Mononitrate 30 mg [Imdur 30 MG] 30 mg PO DAILY 05/31/21 [History] Nitroglycerin 0.4 mg Tablet [Nitrostat 0.4 MG Tablet] 0.4 mg SL UD PRN 05/31/21 [History] Omeprazole 40 mg PO DAILY 05/31/21 [History] Colesevelam HCl [Welchol] 625 mg PO DAILY 04/19/24 [History] Hydralazine HCl 50 mg PO TID 04/19/24 [History] Olmesartan Medoxomil 20 mg [Benicar 20 MG] 20 mg PO BID 04/19/24 [History] Hx Tetanus, Diphtheria Vaccination/Date Given: Yes Hx Influenza Vaccination/Date Given: Yes Hx Pneumococcal Vaccination/Date Given: Yes Immunizations Up to Date: Yes Travel Risk - International Travel Have you traveled outside of the country in past 3 weeks: No - Emerging Infectious Disease Are you exhibiting symptoms associated with any current EIDs: No - Review of Systems Constitutional: No Symptoms Ears, Nose, & Throat: No Symptoms Respiratory: No Symptoms Cardiac: No Symptoms Abdominal/Gastrointestinal: No Symptoms Genitourinary Symptoms: No Symptoms Musculoskeletal: Joint Pain Skin: No Symptoms Neurological: No Symptoms - Past Medical History Pertinent Past Medical History: Yes Neurological History: No Pertinent History ENT History: No Pertinent History Cardiac History: Hypertension Respiratory History: Pneumonia Endocrine Medical History: No Pertinent History Musculoskeletal History: Arthritis GI Medical History: GERD History: No Pertinent History Psycho-Social History: No Pertinent History Female Reproductive Disorders: No Pertinent History Other Medical History: "Blood clots near my heart" 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[place], [place] - Past Surgical History Past Surgical History: Yes Neuro Surgical History: No Pertinent History Cardiac: Cardiac Catheterization, Cardiac Stent Respiratory: No Pertinent History Gastrointestinal: Cholecystectomy Genitourinary: No Pertinent History Musculoskeletal: No Pertinent History Female Surgical History: No Pertinent History Other Surgical History: 3 cardiac stents - Social History Smoking Status: Former smoker Exposure to second hand smoke: No Drug Use: none Patient Lives Alone: No - Social Determinants of Health Will the patient participate in the screening: Yes Do you worry about a steady place to live?: No Do you have any problems with any of the following?: No known problems In the past 12 months,have you had to go without utilities?: No Transportation Issues: No Has anyone in your support network made you feel unsafe?: No Have you or anyone in your house had to go without enough: No - Nursing Vital Signs Nursing Vital Signs: Initial Vital Signs Temperature 97.7 F 04/19/24 15:00 Pulse Rate 69 04/19/24 15:00 Respiratory Rate 18 04/19/24 15:00 Blood Pressure 215/73 04/19/24 15:00 O2 Sat by Pulse Oximetry 96 04/19/24 15:00 Pain Scale Pain Intensity 4 - Physical Exam General Appearance: no apparent distress Neck Exam: normal inspection, full range of motion Cardiovascular/Respiratory Exam: normal breath sounds, regular rate/rhythm Gastrointestinal/Abdominal Exam: non-tender, soft, no organomegaly Back Exam: normal inspection, normal range of motion Hips Exam: right: non-tender, left: bone tenderness, pain, soft tissue tenderness, bilateral: normal inspection, normal range of motion, no evidence of injury Legs Exam: bilateral leg: non-tender, normal inspection, normal range of motion, no evidence of injury Neuro/Tendon Exam: normal sensation, normal motor functions Mental Status Exam: alert, oriented x 3, cooperative Skin Exam: normal color, warm SpO2 Interpretation: normal SpO2: 92 O2 Delivery: Room Air Ordered Tests: Active Orders 24 hr Category Date Time Status HIP UNI (2V) INCL PEL IF DONE Stat Exams 04/19/24 15:12 Taken Medication Summary Discontinued Medications Generic Name Dose Route Start Last Admin Trade Name Richardq PRN Reason Stop Dose Admin Clonidine 0.2 mg 04/19/24 16:30 04/19/24 16:33 Clonidine Hcl 0.1 Mg Tablet PO 04/19/24 16:31 0.2 mg STAT ONE Administration Clonidine Confirm 04/19/24 16:32 Clonidine Hcl 0.1 Mg Tablet Administered 04/19/24 16:33 Dose 0.2 mg .ROUTE .STK-MED ONE Morphine Sulfate 4 mg 04/19/24 15:39 04/19/24 15:53 Morphine Sulfate 4 Mg/Ml Injection IM 04/19/24 15:40 4 mg STAT ONE Administration Morphine Sulfate Confirm 04/19/24 15:51 Morphine Sulfate 4 Mg/Ml Injection Administered 04/19/24 15:52 Dose 4 mg .ROUTE .STK-MED ONE Ondansetron HCl 4 mg 04/19/24 15:40 04/19/24 15:53 Zofran 4 Mg/Udtablet Orally Disintegrating PO 04/19/24 15:41 4 mg STAT ONE Administration Ondansetron HCl Confirm 04/19/24 15:51 Zofran 4 Mg/Udtablet Orally Disintegrating Administered 04/19/24 15:52 Dose 4 mg .ROUTE .STK-MED ONE - Progress Progress: improved Progress Note: 04/19/24 17:15 78-year-old is evaluated in the ER for left hip pain without any fall or trauma with exacerbation on movement/palpation. Negative neuroexam lower extremities. Given symptomatic treatment with morphine, reevaluation pain is better but not completely resolved. I have obtained hip x-rays which are negative for fracture dislocation reviewed by me, official report is pending. Patient blood pressure was in 200. Denies any headache, visual disturbance, chest pain or shortness of breath. She is given clonidine and improved in 140s. She has not taken her afternoon medications. She is recommended monitoring and outpatient follow-up. Discussed signs symptoms of worsening needing return to ER which she seems understanding. I believe her hip pain is secondary to strain versus arthritic and will give Flexeril for symptomatic relief to take along with tramadol which she has at home. Patient has nausea and vomiting with tramadol and will give Zofran for that. Discussed signs symptoms of worsening needing return to ER which she seems understanding. Counseled pt/family regarding: diagnosis, need for follow-up, rad results Medical Desision Making - Diagnostic Testing Diagnostic test were ordered, analyzed, and reviewed by me: Yes Radiological Interpretation: Interpreted by me, Reviewed by me - Risk of complications The pt has a mod risk of morbidity or mortality based on: Need for prescription drug management - Departure Departure Disposition: Home Clinical Impression: Hip strain, Uncontrolled hypertension Condition: Stable Critical Care Time: No Referrals: JAEL LEHMAN [Primary Care Provider] - Follow up with PCP 1 day YAS FABIAN MD [ACTIVE STAFF] - Follow up/PCP as directed (Call for appointment for reevaluation) Instructions: Lower Extremity Muscle Strain (DC) Additional Instructions: Monitor your blood pressure regularly, keep a log and follow-up with primary care for reevaluation. Take tramadol and Zofran as needed for symptomatic relief. Follow-up with orthopedics for reevaluation of hip pain. Return to ER for any worsening. Prescriptions: Cyclobenzaprine HCl 10 mg [Flexeril 10 MG] 5 mg PO TID 10 Days #12 tablet Ondansetron ODT 4 MG [Zofran Odt 4 mg] 1 ea PO QIDPRN PRN 5 Days #10 tablet PRN Reason: n/v
[2024-04-19 17:34] VITALS: BP 111/51; PULSE 62; O2SAT 93
--- NOTE | 2024-04-19 21:40 | XRAY ---
Indication: Pain. No known injury. Comparison: None AP pelvis and 2 view left hip demonstrates osteopenia, 1.8 cm uterine calcified fibroid, and minimal scattered vascular calcifications. No other bony, articular, or soft tissue abnormalities.
== END 2024-04-19 17:35 | disposition home or self-care (01) ==
LOC: ED 14:47
DX: S76.012A Strain of muscle, fascia and tendon of left hip, initial encounter (principal); M25.552 Pain in left hip; I10 Essential (primary) hypertension
CPT/HCPCS: 73502; 96372; 99283; J2270; Q0162; A9270-GY